=== PATIENT | male | born 1955 | race Caucasian/White ===

== ENCOUNTER 2016-08-05 13:10 | Emergency (ER) | payer MEDICAID ==
[2016-08-05 13:10] VITALS: BMI 35.5
[2016-08-05 13:38] VITALS: TEMP 98
[2016-08-05] MEDS ORDERED: Sodium Chloride 0.9% 1,000 ML IV STA (13:52)
--- NOTE | 2016-08-05 14:01 | ED PDOC ---
Arrival/HPI - General Chief Complaint: Trauma Time Seen by Provider: 08/05/16 13:43 Historian: Patient - History of Present Illness Narrative History of Present Illness (Text): 08/05/16 13:46 Storm Lomax is a 61 year old male whose past medical history includes Diabetes , Hypertension, Hyperlipidemia, and TIA who presents to the emergency department for left sided rib pain after a mechanical fall last night. Patient reports as he was going down the stairs he missed a step, subsequently falling, and hitting his side on a step. Pain is worsened with coughing and deep breaths. Patient also states he is thirsty and that his sugar is higher than usual, despite taking his medication. Patient otherwise denies any fever, chills , shortness of breath, nausea, vomiting, diarrhea, urinary symptoms, back pain, neck pain, headache, dizziness, or any other complaints. PMD: Colin Rose MD Time/Duration: 24 hours Symptom Onset: Sudden Symptom Course: Unchanged Activities at Onset: Light Context: Walking, Home Past Medical History - Provider Review Nursing Documentation Reviewed: Yes - Infectious Disease Hx of Infectious Diseases: None - Cardiac Hx Cardiac Disorders: Yes Hx Hypertension: Yes - Pulmonary Hx Respiratory Disorders: Yes Other/Comment: LIGHT SMOKER <12/WK - Neurological Hx Neurological Disorder: Yes Hx Transient Ischemic Attacks (TIA): Yes - HEENT Hx HEENT Disorder: Yes (WEARS GLASSES) - Renal Hx Kidney Stones: Yes - Endocrine/Metabolic Hx Endocrine Disorders: Yes Hx Diabetes Mellitus Type 2: Yes - Musculoskeletal/Rheumatological Hx Musculoskeletal Disorders: Yes Hx Falls: Yes Hx Herniated Disk: Yes (lumbar spine) Hx Osteoarthritis: Yes - Gastrointestinal Hx Gastrointestinal Disorders: No - Genitourinary/Gynecological Hx Genitourinary Disorders: No - Psychiatric Hx Psychophysiologic Disorder: No Hx Substance Use: No - Surgical History Hx Appendectomy: Yes Hx [place] [facility] [place] Other/Comment: Vasectomy - Suicidal Assessment Feels Threatened In Home Enviroment: No Family/Social History - Physician Review Nursing Documentation Reviewed: Yes Family/Social History: No Known Family HX Smoking Status: Light Smoker < 10 Cigarettes Daily Hx Alcohol Use: Yes Frequency of alcohol use: Daily Hx Substance Use: No Hx Substance Use Treatment: No Allergies/Home Meds Allergies/Adverse Reactions: Allergies No Known Allergies Allergy (Unverified 04/14/15 10:29) Home Medications: Home Meds Medication Instructions Recorded Confirmed oxyCODONE/Acetaminophen [Percocet 1 tab PO PRN PRN 08/05/16 08/05/16 5/325 mg Tab] Review of Systems - Physician Review All systems were reviewed & negative as marked: Yes - Review of Systems Constitutional: Normal. absent: Fevers Eyes: Normal ENT: Normal Respiratory: Normal. absent: SOB, Cough Cardiovascular: Chest Pain (Right Rib Pain) Gastrointestinal: Normal. absent: Abdominal Pain, Diarrhea, Nausea, Vomiting Genitourinary Male: Normal. absent: Dysuria, Frequency, Hematuria, Urinary Output Changes Musculoskeletal: Normal. absent: Back Pain, Neck Pain Skin: Normal Neurological: Normal. absent: Headache, Dizziness Endocrine: Normal Hemo/Lymphatic: Normal Psychiatric: Normal Physical Exam Vital Signs Reviewed: Yes Vital Signs Temp Pulse Resp BP Pulse Ox 08/05/16 13:31 98 F 108 H 18 151/74 H 96 Temperature: Afebrile Blood Pressure: Hypertensive Pulse: Tachycardic Respiratory Rate: Normal Appearance: Positive for: Well-Appearing, Non-Toxic, Comfortable Pain Distress: None Mental Status: Positive for: Alert and Oriented X 3 - Systems Exam Head: Present: Atraumatic, Normocephalic Pupils: Present: PERRL Extroacular Muscles: Present: EOMI Conjunctiva: Present: Normal Mouth: Present: Moist Mucous Membranes Neck: Present: Normal Range of Motion Respiratory/Chest: Present: Clear to Auscultation, Good Air Exchange, Tender to Palpation (Mild tenderness to the left lateral ribs when laying down; no crepus no step off ). No: Respiratory Distress, Accessory Muscle Use Cardiovascular: Present: Regular Rate and Rhythm, Normal S1, S2. No: Murmurs Abdomen: Present: Normal Bowel Sounds. No: Tenderness, Distention, Peritoneal Signs Back: Present: Normal Inspection. No: CVA Tenderness Neurological: Present: GCS=15, CN II-XII Intact, Speech Normal Skin: Present: Warm, Dry, Normal Color. No: Rashes Psychiatric: Present: Alert, Oriented x 3, Normal Insight, Normal Concentration Medical Decision Making ED Course and Treatment: 08/05/16 13:46 Impression: 61 year old male complaining of left rib pain and high sugar Differential Diagnosis include but are not limited to: Hyperglycemia; Left Rib Pain r/o fracture Plan: -- Left Ribs X-Ray -- IV Fluids -- Toradol -- Labs -- Reassess and disposition Prior Visits: Notes and results from previous visits were reviewed. Patient was last seen in the Emergency department on 04/18/16 for chest pain. Progress Notes: Patient was hydrated with 1 liter NS to clear lactic acid and dehydration. BUN/ Cr normal. Patient is making urine. Patient is not lightheaded or dizzy. Patient states has improved a lot. He will receive an incentive spirometer and educated on use. He will make sure to follow up with primary care doctor this week. - Lab Interpretations Lab Results: 08/05/16 15:30 08/05/16 15:30 Lab Results 08/05/16 15:30: WBC 9.1 D, RBC 4.32, Hgb 15.0, Hct 41.8 L, MCV 96.8, MCH 34.7, MCHC 35.9, RDW 14.0, Plt Count 175, MPV 11.2 H, Gran % 80.8 H, Lymph % (Auto) 12.0 L, Cass % (Auto) 6.9 H, Eos % (Auto) 0.1 L, Baso % (Auto) 0.2, Gran # 7.37 H, Lymph # 1.1 L, Cass # 0.6, Eos # 0.0, Baso # 0.02, pO2 162 H, VBG pH 7.48 H, VBG pCO2 39.0 L, VBG HCO3 29.0 H, VBG Total CO2 30.2 H, VBG O2 Sat (Calc) 99.4 H , VBG Base Excess 5.2 H, VBG Potassium 3.8, Glucose 187 H, Lactate 2.8 H, FiO2 21.0, Sodium 138.0, Potassium 3.9, Chloride 104.0, Carbon Dioxide 28, Anion Gap 16, BUN 10, Creatinine 0.5, Est GFR ( Amer) > 60, Est GFR (Non-Af Amer) > 60, Random Glucose 176 H, Calcium 9.5, Venous Blood Potassium 3.8 I have reviewed the lab results: Yes Interpretation: No clinic. lab abnormalty - RAD Interpretation Radiology Orders: 08/05/16 13:50 RIBS LEFT & PA CHEST [RAD] Stat Refund Clerk: ED Physician - Medication Orders Current Medication Orders: Discontinued Medications Sodium Chloride (Sodium Chloride 0.9%) 1,000 mls @ 999 mls/hr IV .Q1H1M STA Stop: 08/05/16 14:52 Last Admin: 08/05/16 15:30 Dose: 999 MLS/HR eMAR Start Stop Document 08/05/16 15:30 SZA (Rec: 08/05/16 15:36 SZA [id number]) Intravenous Solution Start Date 08/05/16 Start Time 15:30 End Date 08/05/16 End time 16:30 Total Infusion Time 60 Ketorolac Tromethamine (Toradol) 30 mg IVP STAT STA Stop: 08/05/16 13:52 Last Admin: 08/05/16 15:36 Dose: 30 MG IVP Administration Document 08/05/16 15:36 SZA (Rec: 08/05/16 15:36 SZA [id number]) Charges for Administration # of IVP Administrations 1 - Scribe Statement The provider has reviewed the documentation as recorded by the Eagle Bateman Provider Attestation: All medical record entries made by the Eagle were at my direction and personally dictated by me. I have reviewed the chart and agree that the record accurately reflects my personal performance of the history, physical exam, medical decision making, and the department course for this patient. I have also personally directed, reviewed, and agree with the discharge instructions and disposition. Disposition/Present on Arrival - Present on Arrival Any Indicators Present on Arrival: No History of DVT/PE: No History of Uncontrolled Diabetes: No Urinary Catheter: No History of Decub. Ulcer: No History Surgical Site Infection Following: None - Disposition Have Diagnosis and Disposition been Completed?: Yes Diagnosis: Rib contusion Disposition: HOME/ ROUTINE Disposition Time: 17:31 Patient Plan: Discharge Patient Problems: Current Active Problems Problem Status Diagnosed Rib contusion Acute Condition: IMPROVED Discharge Instructions (ExitCare): Dehydration (ED), Rib Contusion (ED) Additional Instructions: Mr Lomax, thank you for letting us take care of you today. Your provider was Dr. Metcalf. You were treated for Rib Contusion. The emergency medical care you received today was directed at your acute symptoms. If you were prescribed any medication, please fill it and take as directed. It may take several days for your symptoms to resolve. Return to the Emergency Department if your symptoms worsen, do not improve, or if you have any other problems. Please contact your doctor or call one of the physicians/clinics you have been referred to that are listed on the Patient Visit Information form that is included in your discharge packet. Bring any paperwork you were given at discharge with you along with any medications you are taking to your follow up visit. Our treatment cannot replace ongoing medical care by a primary care provider (PCP) outside of the emergency department. Thank you for allowing the [facility] team to be part of your care today. If you had an X-Ray or CT scan: A Radiologist will review the ED reading if any change in treatment is needed we will contact you. If you had a blood, urine, or wound culture: It will take several days for the results, if any change in treatment is needed we will contact you. If you had an STI test: It will take 48 hours for the results. Please call after 1 week if you have not heard back. Referrals: Colin Rose MD [Primary Care Provider] - Follow up with primary Forms: WORK NOTE
[2016-08-05 15:37] LABS: ADD MANUAL DIFF? NO
[2016-08-05 15:42] LABS: VENOUS BLOOD GAS BASE EXCESS 5.2 mmol/L (0.0-2.0); VENOUS BLOOD PH 7.48 (7.32-7.43)
[2016-08-05 15:50] LABS: BLOOD UREA NITROGEN 10 mg/dL (7-21); CALCIUM 9.5 mg/dL (8.4-10.5); CARBON DIOXIDE 28 mmol/L (21-33); CHLORIDE 99 mmol/L (98-107); GFR AFRICAN-AMERICAN > 60; GLUCOSE,RANDOM 176 mg/dL (70-110); POTASSIUM 3.9 mmol/L (3.6-5.0); SODIUM 139 mmol/L (132-148)
[2016-08-05 15:55] LABS: BASO # 0.02 K/mm3 (0.0-2.0); BASO % 0.2 % (0.0-3.0); EOS % 0.1 % (1.5-5.0); GRAN # 7.37 (1.4-6.5); GRAN % 80.8 % (50.0-68.0); HEMATOCRIT 41.8 % (42.0-52.0); LYMPH # 1.1 (1.2-3.4); MEAN CELL VOLUME 96.8 fL (80.0-105.0); MEAN CORPUSCULAR HEMOGLOBIN 34.7 pg (25.0-35.0); MEAN CORPUSCULAR HGB CONC 35.9 g/dl (31.0-37.0); MEAN PLATELET VOLUME 11.2 fl (7.0-11.0); MONO # 0.6 (0.1-0.6); MONO % 6.9 % (1.0-6.0); PLATELET COUNT 175 10^3/uL (120.0-450.0); WHITE BLOOD COUNT 9.1 10^3/ul (4.5-11.0)
[2016-08-05 18:55] VITALS: BP 136/63; PULSE 85; RESP 16; O2SAT 95
--- NOTE | 2016-08-06 13:13 | RAD ---
PROCEDURE: Chest and left rib series dated 08/05/2016. New HISTORY: left rib pain s/p fall r/o fracture COMPARISON: Comparison made with chest radiograph 04/18/2016. TECHNIQUE: Frontal view of the chest and 4 additional views of the left ribs performed. Study is slightly limited by motion artifact. FINDINGS: Heart size is within range of normal. Mild bibasilar atelectasis. No evidence of effusion or pneumothorax. The visualized left ribs appear grossly intact. No definitive evidence of acute displaced fracture. If symptoms persist or occult fracture suspected clinically recommend followup CT scan of the chest. IMPRESSION: No definitive evidence of acute displaced left-sided rib fracture. If symptoms persist or occult fracture suspected clinically recommend followup CT scan of the chest.
== END 2016-08-05 17:41 | disposition home or self-care (01) ==
LOC: ED 13:10
DX: S20.212A Contusion of left front wall of thorax, initial encounter (principal); W10.9XXA Fall (on) (from) unspecified stairs and steps, initial encounter; Z91.81 History of falling; Y93.01 Activity, walking, marching and hiking; Y92.009 Unspecified place in unspecified non-institutional (private) residence as the place of occurrence of the external cause; E11.9 Type 2 diabetes mellitus without complications; M19.90 Unspecified osteoarthritis, unspecified site; I10 Essential (primary) hypertension; F17.210 Nicotine dependence, cigarettes, uncomplicated; Z86.73 Personal history of transient ischemic attack (TIA), and cerebral infarction without residual deficits
CPT/HCPCS: 71101; 80048; 82803; 82948; 85025; 96361; 96374; 99285; J1885; J7040

== ENCOUNTER 2016-09-25 21:25 | Observation (INO) | payer MEDICARE, MEDICAID ==
[2016-09-25 22:25] VITALS: BMI 33.7
--- NOTE | 2016-09-25 22:28 | ED PDOC ---
Arrival/HPI - General Chief Complaint: Weakness/Neurological Deficit Time Seen by Provider: 09/25/16 22:01 Historian: Patient - History of Present Illness Narrative History of Present Illness (Text): 09/25/16 22:25 Storm Lomax is a 61 year old male, with a history of hypertension, diabetes, hyperlipidemia, and TIA (May 2015), presents to the emergency department complaining of upper extremity tremors. Admits to drinking alcohol throughout the day. States he has been compliant with his medications. Denies any fever, headache, dizziness, chest pain, shortness of breath, abdominal pain, nausea, vomiting, diarrhea, urinary symptoms, or any other complaints at this time. PMD: Time/Duration: 1-3 hours Symptom Onset: Gradual Severity Level: Mild Activities at Onset: Light Context: Home Past Medical History - Provider Review Nursing Documentation Reviewed: Yes - Infectious Disease Hx of Infectious Diseases: None - Cardiac Hx Cardiac Disorders: Yes Hx Hypertension: Yes - Pulmonary Hx Respiratory Disorders: Yes Other/Comment: LIGHT SMOKER <12/WK - Neurological Hx Neurological Disorder: Yes Hx Transient Ischemic Attacks (TIA): Yes - HEENT Hx HEENT Disorder: Yes (WEARS GLASSES) - Renal Hx Kidney Stones: Yes - Endocrine/Metabolic Hx Endocrine Disorders: Yes Hx Diabetes Mellitus Type 2: Yes - Musculoskeletal/Rheumatological Hx Musculoskeletal Disorders: Yes Hx Falls: Yes Hx Herniated Disk: Yes (lumbar spine) Hx Osteoarthritis: Yes - Gastrointestinal Hx Gastrointestinal Disorders: No - Genitourinary/Gynecological Hx Genitourinary Disorders: No - Psychiatric Hx Psychophysiologic Disorder: No Hx Substance Use: No - Surgical History Hx Appendectomy: Yes Hx Cardiac Catheterization: Yes [place]4 months ago [place] [facility] [place] [facility] [place] Other/Comment: Vasectomy - Suicidal Assessment Feels Threatened In Home Enviroment: No Family/Social History - Physician Review Nursing Documentation Reviewed: Yes Family/Social History: No Known Family HX Smoking Status: Light Smoker < 10 Cigarettes Daily Hx Alcohol Use: Yes Hx Substance Use: No Hx Substance Use Treatment: No Allergies/Home Meds Allergies/Adverse Reactions: Allergies No Known Allergies Allergy (Verified 09/25/16 22:25) Home Medications: Home Meds Medication Instructions Recorded Confirmed oxyCODONE/Acetaminophen [Percocet 1 tab PO PRN PRN 08/05/16 08/05/16 5/325 mg Tab] Review of Systems - Physician Review All systems were reviewed & negative as marked: Yes - Review of Systems Constitutional: Normal. absent: Fatigue, Fevers Respiratory: Normal. absent: SOB, Cough, Sputum Cardiovascular: Normal. absent: Chest Pain, Palpitations Gastrointestinal: Normal. absent: Abdominal Pain, Diarrhea, Nausea, Vomiting Musculoskeletal: Other (resting upper extremity tremors ) Neurological: absent: Headache, Dizziness Psychiatric: Normal Physical Exam Vital Signs Reviewed: Yes Vital Signs Temp BP 09/25/16 21:43 98.4 F 162/74 H Temperature: Afebrile Blood Pressure: Hypertensive Pulse: Regular Respiratory Rate: Normal Appearance: Positive for: Well-Appearing, Non-Toxic, Comfortable Pain Distress: None Mental Status: Positive for: Alert and Oriented X 3 Finger Stick Blood Glucose: 291 - Systems Exam Head: Present: Atraumatic, Normocephalic Pupils: Present: PERRL Mouth: Present: Moist Mucous Membranes Respiratory/Chest: Present: Clear to Auscultation, Good Air Exchange. No: Respiratory Distress, Accessory Muscle Use Cardiovascular: Present: Regular Rate and Rhythm, Normal S1, S2. No: Murmurs Upper Extremity: Present: Normal Inspection. No: Cyanosis, Edema Lower Extremity: Present: Normal Inspection. No: Edema Neurological: Present: GCS=15, CN II-XII Intact, Speech Normal, Motor Func Grossly Intact, Normal Sensory Function, Other (resting tremors. No weakness ) Skin: Present: Warm, Dry, Normal Color. No: Rashes Psychiatric: Present: Alert, Oriented x 3, Normal Insight, Normal Concentration Medical Decision Making ED Course and Treatment: 09/25/16 22:32 Impression: A 61 year old male who presents to the emergency department complaining of resting tremors. Admits to drinking alcohol today. Differential Diagnosis included but are not limited to: Alcohol withdrawal. Plan: -- CT Head -- EKG -- Labs, cardiac enzymes -- Drug Screen -- Ativan -- Chest X-ray -- Reassess and disposition Progress Notes: 09/26/16 00:29 EKG interpreted by me: NSR @ 90 bpm. No acute changes Chest X-ray interpreted by me: No acute processes. 09/26/16 00:30 CT Head results reviewed, read by Jorge Sullivan MD FINDINGS: Brain: There is mild prominence of ventricles and sulci, compatible with mild atrophy. There is no evidence of intracranial hemorrhage. No evidence of acute territorial infarction. No significant white matter disease. No edema. Punctate calcification in the right frontal periventricular region Ventricles: See above. Bones/joints: Unremarkable. No acute fracture. Soft tissues: Unremarkable. Sinuses: Unremarkable as visualized. No acute sinusitis. Mastoid air cells: Unremarkable as visualized. No mastoid effusion. IMPRESSION: 1. No evidence for acute intracranial abnormality or displaced calvarial fracture. 2. Additional incidental and/or chronic findings as described. 09/26/16 00:49 Case discussed with who is aware and agrees with the plan observe patient at telemetry for alcohol withdrawal. Accepts patient under hospitalist service. Patient evaluated by medical records analyst bedside. - Lab Interpretations Lab Results: 09/25/16 22:51 09/25/16 22:51 Lab Results 09/25/16 22:51: Alcohol, Quantitative 264 H 09/25/16 22:51: WBC 6.0 D, RBC 4.63, Hgb 16.3, Hct 44.7, MCV 96.5, MCH 35.2 H, MCHC 36.5, RDW 13.5, Plt Count 182, MPV 10.6 09/25/16 22:51: Sodium 142, Potassium 3.9, Chloride 97 L, Carbon Dioxide 25, Anion Gap 24 H, BUN 11, Creatinine 0.5, Est GFR ( Amer) > 60, Est GFR ( Non-Af Amer) > 60, Random Glucose 286 H, Calcium 9.4, Total Bilirubin 0.7, AST 76 H, ALT 130 H, Alkaline Phosphatase 95, Lactate Dehydrogenase 457, Total Creatine Kinase 75, Troponin I < 0.01, Total Protein 8.0, Albumin 4.6, Globulin 3.4, Albumin/Globulin Ratio 1.4 I have reviewed the lab results: Yes - RAD Interpretation Radiology Orders: 09/25/16 22:33 HEAD W/O CONTRAST [CT] Stat 09/25/16 22:34 CHEST PORTABLE [RAD] Stat Inventory Control/Shipping Receiving: Radiologist - EKG Interpretation Interpreted by ED Physician: Yes Type: 12 lead EKG - Medication Orders Current Medication Orders: Discontinued Medications Lorazepam (Ativan) 1 mg PO ONCE STA Stop: 09/25/16 22:37 Last Admin: 09/25/16 22:54 Dose: 1 mg - Scribe Statement The provider has reviewed the documentation as recorded by the Scriblarisa Rizvi Provider Attestation: Provider Scribe Attestation: All medical record entries made by the Eagle were at my direction and personally dictated by me. I have reviewed the chart and agree that the record accurately reflects my personal performance of the history, physical exam, medical decision making, and the department course for this patient. I have also personally directed, reviewed, and agree with the discharge instructions and disposition. Disposition/Present on Arrival - Present on Arrival Any Indicators Present on Arrival: No History of DVT/PE: No History of Uncontrolled Diabetes: No Urinary Catheter: No History of Decub. Ulcer: No History Surgical Site Infection Following: None - Disposition Have Diagnosis and Disposition been Completed?: Yes Diagnosis: Alcohol withdrawal syndrome Disposition: HOSPITALIZED Disposition Time: 00:46 Patient Plan: Observation Patient Problems: Current Active Problems Problem Status Onset Alcohol withdrawal syndrome Acute Condition: STABLE Referrals: Colin Rose MD [Primary Care Provider] - Follow up with primary
[2016-09-25 23:03] LABS: HEMATOCRIT 44.7 % (42.0-52.0); MEAN CELL VOLUME 96.5 fL (80.0-105.0); MEAN CORPUSCULAR HEMOGLOBIN 35.2 pg (25.0-35.0); MEAN CORPUSCULAR HGB CONC 36.5 g/dl (31.0-37.0); MEAN PLATELET VOLUME 10.6 fl (7.0-11.0); RED CELL DISTRIBUTION WIDTH 13.5 % (11.5-14.5)
[2016-09-25 23:10] LABS: ALB/GLOB RATIO 1.4 (1.1-1.8); ALKALINE PHOSPHATASE 95 U/L (38-133); ALT/SGPT 130 U/L (7-56); AST/SGOT 76 U/L (15-59); BILIRUBIN,TOTAL 0.7 mg/dL (0.2-1.3); BLOOD UREA NITROGEN 11 mg/dL (7-21); CALCIUM 9.4 mg/dL (8.4-10.5); CARBON DIOXIDE 25 mmol/L (21-33); CHLORIDE 97 mmol/L (98-107); GFR AFRICAN-AMERICAN > 60; GLUCOSE,RANDOM 286 mg/dL (70-110); POTASSIUM 3.9 mmol/L (3.6-5.0); SODIUM 142 mmol/L (132-148)
[2016-09-25 23:22] LABS: TROPONIN I < 0.01 ng/mL
--- NOTE | 2016-09-25 23:46 | CT ---
EXAM: CT Head Without Intravenous Contrast CLINICAL HISTORY: 61 years old, male; Signs and symptoms; Other: Tremors TECHNIQUE: Axial computed tomography images of the head/brain without intravenous contrast. This CT exam was performed using one or more of the following dose reduction techniques: automated exposure control, adjustment of the mA and/or kV according to patient size, and/or use of iterative reconstruction technique. COMPARISON: CT - HEAD W/O CONTRAST 04/18/2016 11:53:50 PM FINDINGS: Brain: There is mild prominence of ventricles and sulci, compatible with mild atrophy. There is no evidence of intracranial hemorrhage. No evidence of acute territorial infarction. No significant white matter disease. No edema. Punctate calcification in the right frontal periventricular region Ventricles: See above. Bones/joints: Unremarkable. No acute fracture. Soft tissues: Unremarkable. Sinuses: Unremarkable as visualized. No acute sinusitis. Mastoid air cells: Unremarkable as visualized. No mastoid effusion. IMPRESSION: 1. No evidence for acute intracranial abnormality or displaced calvarial fracture. 2. Additional incidental and/or chronic findings as described.
--- NOTE | 2016-09-26 01:10 | CP.PCM.HP ---
<Juan AlbertoJarred young - Last Filed: 09/26/16 01:05> History of Present Illness - History of Present Illness History of Present Illness: This patient is a 61yo [place]ian M who is coming into the hospital for anxiety/ tremors after he has been binge drinking 1pint of Vodka per day for the past 10 days. The patient states that he has been incredibly stressed due to the loss of his job 10 days ago, and has begun to drink every day since then. He states he is depressed/anxious because of this. Denies hearing voices/seeing hallucinations, denies thoughts of suicide, no plans to hurt self or others, thought process is clear and goal oriented and patient has good insight into his problem. He has attended AA for many years already and knows he has a problem with drinking. EtOH in ER was 270; patient denies FERNÁNDEZ, CP, SOB, abdominal pain, N/V/D, fevers/chills, dysuria/freq/urg, or lower extremity pain/ swelling. Patient denies admission for EtOH withdrawal, or ever needing to be admitted for drinking before. PMhx: DM on insulin uncontrolled last A1C 9.1, HTN, HLD Meds: Lantus 45 units morning and night, and sliding scale before meals, amlodipine, ramapril, lipitor Social: daily drinker, however drinking much more recently since loss of job 10 days ago; Denies current illicit drugs; former smoker 1pack per day for 30 years. Surgeries: Appendix removal, Vasectomy, Right Meniscal repair, partial nephrectomy Allergies: Denies The patients EtOH level was 270 in the ED; patient is tachycardic and hypertensive and slightly shaky/anxious. No AV hallucinations. Given 1mg PO ativan which helped symptoms. Present on Admission - Present on Admission Any Indicators Present on Admission: No History of DVT/PE: No History of Uncontrolled Diabetes: Yes Urinary Catheter: No Decubitus Ulcer Present: No Review of Systems - Review of Systems All systems: reviewed and no additional remarkable complaints except Past Patient History - Infectious Disease Hx of Infectious Diseases: None - Past Social History Smoking Status: Light Smoker < 10 Cigarettes Daily - CARDIAC Hx Cardiac Disorders: Yes Hx Hypertension: Yes - PULMONARY Hx Respiratory Disorders: Yes Other/Comment: LIGHT SMOKER <12/WK - NEUROLOGICAL Hx Neurological Disorder: Yes Hx Transient Ischemic Attacks (TIA): Yes - HEENT Hx HEENT Problems: Yes (WEARS GLASSES) - RENAL Hx Kidney Stones: Yes - ENDOCRINE/METABOLIC Hx Endocrine Disorders: Yes Hx Diabetes Mellitus Type 2: Yes - MUSCULOSKELETAL/RHEUMATOLOGICAL Hx Musculoskeletal Disorders: Yes Hx Falls: Yes Hx Herniated Disk: Yes (lumbar spine) Hx Osteoarthritis: Yes - GASTROINTESTINAL Hx Gastrointestinal Disorders: No - GENITOURINARY/GYNECOLOGICAL Hx Genitourinary Disorders: No - PSYCHIATRIC Hx Psychophysiologic Disorder: No Hx Substance Use: No - SURGICAL HISTORY Hx Appendectomy: Yes Hx Cardiac Catheterization: Yes (4 months ago in [facility]) Other/Comment: Vasectomy Meds Allergies/Adverse Reactions: Allergies Allergy/AdvReac Type Severity Reaction Status Date / Time No Known Allergies Allergy Verified 09/26/16 14:18 Physical Exam - Constitutional Appears: Non-toxic Additional comments: flushed face, anxious, appropriate affect - Head Exam Head Exam: ATRAUMATIC - Eye Exam Eye Exam: EOMI - ENT Exam ENT Exam: Mucous Membranes Moist - Respiratory Exam Respiratory Exam: Clear to Auscultation Bilateral, NORMAL BREATHING PATTERN. absent: Rales, Rhonchi, Wheezes - Cardiovascular Exam Cardiovascular Exam: Tachycardia, REGULAR RHYTHM, +S1, +S2 - GI/Abdominal Exam GI & Abdominal Exam: Normal Bowel Sounds, Soft. absent: Tenderness - Extremities Exam Extremities exam: Positive for: full ROM. Negative for: calf tenderness - Back Exam Back exam: NORMAL INSPECTION. absent: CVA tenderness (L), CVA tenderness (R) - Neurological Exam Neurological exam: Alert, Oriented x3 - Skin Skin Exam: Dry Results - Vital Signs Recent Vital Signs: Last Vital Signs Temp 98.4 F 09/25/16 21:43 Pulse 99 H 09/26/16 01:01 Resp 18 09/26/16 01:01 BP 129/82 09/26/16 01:01 Pulse Ox 95 09/26/16 01:01 - Labs Result Diagrams: 09/25/16 22:51 09/25/16 22:51 Labs: Laboratory Results - last 24 hr 09/25/16 09/25/16 09/25/16 22:51 22:51 22:51 WBC 6.0 D RBC 4.63 Hgb 16.3 Hct 44.7 MCV 96.5 MCH 35.2 H MCHC 36.5 RDW 13.5 Plt Count 182 MPV 10.6 Sodium 142 Potassium 3.9 Chloride 97 L Carbon Dioxide 25 Anion Gap 24 H BUN 11 Creatinine 0.5 Est GFR ( Amer) > 60 Est GFR (Non-Af Amer) > 60 Random Glucose 286 H Calcium 9.4 Total Bilirubin 0.7 AST 76 H ALT 130 H Alkaline Phosphatase 95 Lactate Dehydrogenase 457 Total Creatine Kinase 75 Troponin I < 0.01 Total Protein 8.0 Albumin 4.6 Globulin 3.4 Albumin/Globulin Ratio 1.4 Alcohol, Quantitative 264 H Assessment & Plan - Assessment and Plan (Free Text) Assessment: Pt is a 61yo M admitted for EtOH Withdrawal EtOH Withdrawal -Tachycardic and HTN in the ED; given 1mg PO ativan which responded well to -CIWA protocol -IV Thiamine as per Dr. Crawley, Folate, Multivitamin daily -Ativan Tricia 1mg Q6H and PRN Q2H 1mg -wishes to stop drinking and continue with AA meetings Depression -No SI/HI; good insight into problem with inciting event of losing job -Psych Consult; Dr. Nixon; appreciate recs -patient states he wants to talk to someone -never been depressed before DM -Normally takes Lantus 45 units BID, and 35 units 75/25 Humalog before meals -Giving Lantus 20 units BID, and 20 units 75/25 with sliding scale HLD -patient gets injectable Repatha every 2 weeks Proph Lovenox and Pepcid Heart healthy diet Decision To Admit - Pt Status Changed To: Hospital Disposition Of: Observation - . Bed Request Type: Med/Surg Admitting Physician: Derick Crawley <Derick Crawley - Last Filed: 10/09/16 19:27> Results - Vital Signs Recent Vital Signs: Last Vital Signs Temp 98.4 F 09/27/16 06:00 Pulse 96 H 09/27/16 10:00 Resp 18 09/27/16 06:00 BP 142/80 09/27/16 10:29 Pulse Ox 96 09/27/16 06:00 - Labs Result Diagrams: 09/27/16 07:00 09/27/16 07:00 Attending/Attestation - Attestation I have personally seen and examined this patient.: Yes I have fully participated in the care of the patient.: Yes I have reviewed all pertinent clinical information: Yes
[2016-09-26] MEDS ORDERED: Thiamine 100 mg/ml Inj IV STA (01:35)
[2016-09-26] MEDS ORDERED: Sodium Chloride 0.45% 1,000 ML IV ONE (01:37)
[2016-09-26 06:43] LABS: HEMATOCRIT 43.8 % (42.0-52.0); MEAN CELL VOLUME 96.1 fL (80.0-105.0); MEAN CORPUSCULAR HEMOGLOBIN 34.9 pg (25.0-35.0); MEAN CORPUSCULAR HGB CONC 36.3 g/dl (31.0-37.0); MEAN PLATELET VOLUME 10.6 fl (7.0-11.0); RED CELL DISTRIBUTION WIDTH 13.5 % (11.5-14.5); WHITE BLOOD COUNT 5.6 10^3/ul (4.5-11.0)
[2016-09-26 06:53] LABS: ALB/GLOB RATIO 1.3 (1.1-1.8); ALKALINE PHOSPHATASE 98 U/L (38-133); ALT/SGPT 123 U/L (7-56); AST/SGOT 63 U/L (15-59); BILIRUBIN,TOTAL 0.9 mg/dL (0.2-1.3); BLOOD UREA NITROGEN 12 mg/dL (7-21); CALCIUM 9.7 mg/dL (8.4-10.5); CARBON DIOXIDE 25 mmol/L (21-33); CHLORIDE 98 mmol/L (98-107); GFR AFRICAN-AMERICAN > 60; MAGNESIUM 1.9 mg/dL (1.7-2.2); POTASSIUM 4.3 mmol/L (3.6-5.0); SODIUM 138 mmol/L (132-148); TOTAL PROTEIN 7.6 g/dL (5.8-8.3)
[2016-09-26 07:05] LABS: GLUCOSE,RANDOM 384 mg/dL (70-110)
[2016-09-26] MEDS ORDERED: Multivitamin (MVI) 10 ML, Thiamine 100 MG, Folic Acid 1 MG in Sodium Chloride 0.9% 1,00... IV ONE (07:13)
[2016-09-26] MEDS ORDERED: Insulin Detemir 100 units/ml Vial (Levemir) SC SCH (07:30)
--- NOTE | 2016-09-26 08:32 | RAD ---
HISTORY: tremors/medical clearance COMPARISON: 08/05/2016 FINDINGS: LUNGS: No active pulmonary disease. PLEURA: No significant pleural effusion identified, no pneumothorax apparent. CARDIOVASCULAR: Normal. OSSEOUS STRUCTURES: No significant abnormalities. VISUALIZED UPPER ABDOMEN: Normal. OTHER FINDINGS: None. IMPRESSION: No active disease.
[2016-09-26] MEDS: Insulin Detemir 100 units/ml Vial (Levemir) SC SCH ×2 (08:36→16:39)
[2016-09-26] MEDS: Insulin Lispro 1 UNITS/0.01 ML SC SCH ×4 (08:37→22:00)
[2016-09-26] MEDS: Insulin Lispro (humaLOG) MIX 75/25(10 ml) SC SCH ×4 (08:38→22:23)
[2016-09-26] MEDS: Enoxaparin 40 mg Syringe SC SCH (10:00)
--- NOTE | 2016-09-26 10:02 | CARD ---
APPROVED REPORT EKG Measurement Heart [id number] <Conclusion> Normal sinus rhythm NSSTW changes Mildly prolonged QTc. No change
[2016-09-26] MEDS: Multivitamin Vitamin B Complex (Nephro-Vite) Tab PO SCH (10:57)
[2016-09-26] MEDS ORDERED: Pneumococcal 23-Valent Vaccine IM ONE (15:48)
[2016-09-27 07:45] LABS: HEMATOCRIT 43.3 % (42.0-52.0); MEAN CELL VOLUME 96.4 fL (80.0-105.0); MEAN CORPUSCULAR HEMOGLOBIN 34.3 pg (25.0-35.0); MEAN CORPUSCULAR HGB CONC 35.6 g/dl (31.0-37.0); MEAN PLATELET VOLUME 10.8 fl (7.0-11.0); RED CELL DISTRIBUTION WIDTH 13.4 % (11.5-14.5)
[2016-09-27 08:29] LABS: ALB/GLOB RATIO 1.2 (1.1-1.8); ALKALINE PHOSPHATASE 80 U/L (38-133); ALT/SGPT 89 U/L (7-56); AST/SGOT 43 U/L (15-59); BILIRUBIN,TOTAL 1.3 mg/dL (0.2-1.3); BLOOD UREA NITROGEN 12 mg/dL (7-21); CALCIUM 8.8 mg/dL (8.4-10.5); CARBON DIOXIDE 27 mmol/L (21-33); CHLORIDE 101 mmol/L (98-107); GFR AFRICAN-AMERICAN > 60; GLUCOSE,RANDOM 208 mg/dL (70-110); POTASSIUM 3.5 mmol/L (3.6-5.0); SODIUM 137 mmol/L (132-148); TOTAL PROTEIN 7.2 g/dL (5.8-8.3)
[2016-09-27] MEDS: Insulin Lispro 1 UNITS/0.01 ML SC SCH ×2 (08:41→11:43)
[2016-09-27] MEDS: Insulin Detemir 100 units/ml Vial (Levemir) SC SCH (08:42)
[2016-09-27 09:04] VITALS: RESP 18; TEMP 98.4; O2SAT 96
[2016-09-27] MEDS ORDERED: Potassium Chloride 40 mEq/30 ml LIQ UD PO ONE (09:10)
[2016-09-27] MEDS: Enoxaparin 40 mg Syringe SC SCH (10:29)
[2016-09-27] MEDS: Multivitamin Vitamin B Complex (Nephro-Vite) Tab PO SCH (10:29)
[2016-09-27 10:32] VITALS: BP 142/80
[2016-09-27 10:39] VITALS: PULSE 96
--- NOTE | 2016-09-27 13:41 | CP.PCM.DIS ---
<Konstantin Campbell - Last Filed: 09/27/16 13:47> Provider - Provider Date of Admission: 09/26/16 00:47 Attending physician: Vi Comer MD Primary care physician: Colin Rose MD Consults: Psych- Dr. Nixon Time Spent in preparation of Discharge (in minutes): 45 Hospital Course - Lab Results Lab Results: Most Recent Lab Values WBC 6.0 10^3/ul (4.5-11.0) 09/27/16 07:00 RBC 4.49 10^6/uL (3.5-6.1) 09/27/16 07:00 Hgb 15.4 gm/dL (14.0-18.0) 09/27/16 07:00 Hct 43.3 % (42.0-52.0) 09/27/16 07:00 MCV 96.4 fL (80.0-105.0) 09/27/16 07:00 MCH 34.3 pg (25.0-35.0) 09/27/16 07:00 MCHC 35.6 g/dl (31.0-37.0) 09/27/16 07:00 RDW 13.4 % (11.5-14.5) 09/27/16 07:00 Plt Count 141 10^3/uL (120.0-450.0) 09/27/16 07:00 MPV 10.8 fl (7.0-11.0) 09/27/16 07:00 Sodium 137 mmol/L (132-148) 09/27/16 07:00 Potassium 3.5 mmol/L (3.6-5.0) L 09/27/16 07:00 Chloride 101 mmol/L (98-107) 09/27/16 07:00 Carbon Dioxide 27 mmol/L (21-33) 09/27/16 07:00 Anion Gap 13 (10-20) 09/27/16 07:00 BUN 12 mg/dL (7-21) 09/27/16 07:00 Creatinine 0.5 mg/dL (0.5-1.4) 09/27/16 07:00 Est GFR ( Amer) > 60 09/27/16 07:00 Est GFR (Non-Af Amer) > 60 09/27/16 07:00 POC Glucose (mg/dL) 294 mg/dL (65-110) H 09/26/16 21:09 Random Glucose 208 mg/dL (70-110) H 09/27/16 07:00 Calcium 8.8 mg/dL (8.4-10.5) 09/27/16 07:00 Magnesium 1.9 mg/dL (1.7-2.2) 09/27/16 07:00 Total Bilirubin 1.3 mg/dL (0.2-1.3) 09/27/16 07:00 AST 43 U/L (15-59) 09/27/16 07:00 ALT 89 U/L (7-56) H 09/27/16 07:00 Alkaline Phosphatase 80 U/L (38-133) 09/27/16 07:00 Lactate Dehydrogenase 457 U/L (333-699) 09/25/16 22:51 Total Creatine Kinase 75 U/L (35-230) 09/25/16 22:51 Troponin I < 0.01 ng/mL 09/25/16 22:51 Total Protein 7.2 g/dL (5.8-8.3) 09/27/16 07:00 Albumin 3.9 g/dL (3.0-4.8) 09/27/16 07:00 Globulin 3.3 gm/dL 09/27/16 07:00 Albumin/Globulin Ratio 1.2 (1.1-1.8) 09/27/16 07:00 Urine Opiates Screen Negative (NEGATIVE) 09/26/16 00:25 Urine Methadone Screen Negative (NEGATIVE) 09/26/16 00:25 Ur Barbiturates Screen Negative (NEGATIVE) 09/26/16 00:25 Ur Phencyclidine Scrn Negative (NEGATIVE) 09/26/16 00:25 Ur Amphetamines Screen Negative (NEGATIVE) 09/26/16 00:25 U Benzodiazepines Scrn Negative (NEGATIVE) 09/26/16 00:25 U Oth Cocaine Metabols Negative (NEGATIVE) 09/26/16 00:25 U Cannabinoids Screen Negative (NEGATIVE) 09/26/16 00:25 Alcohol, Quantitative 264 mg/dL (0-10) H 09/25/16 22:51 - Hospital Course Hospital Course: Attending: Dr. Comer Admit date: 09/26 DC date- 09/27 Consults 1. Psych- Dr. Nixon Procedures- none No complications stable for dc Discharge dx 1. Alcohol abuse 2. depression 3. htn 4. hld 5. dm HPI: see h/p Labs: see lab data section Hospital course Pt is a 61 year old M admitted for EtOH Withdrawal EtOH Withdrawal -Tachycardic and HTN in the ED; given 1mg PO ativan which responded well to -CIWA protocol -IV Thiamine given, Folate, Multivitamin daily -Ativan Tricia 1mg Q6H and PRN Q2H 1mg -wishes to stop drinking and continue with AA meetings -will give ativan taper for 2 days Depression -No SI/HI; good insight into problem with inciting event of losing job -Psych Consult; Dr. Nixon; appreciate recs -patient states he wants to talk to someone -never been depressed before DM -Normally takes Lantus 45 units BID, and 35 units 75/25 Humalog before meals -Giving Lantus 25 units BID, and 20 units 75/25 with sliding scale HLD -patient gets injectable Repatha every 2 weeks Proph Lovenox and Pepcid Heart healthy diet Pt had uneventful hospital course and felt much better with no tremors and no complaints on day of discharge. DC instructions Pt cleared for dc. Please f/u with PMD. Please resume all home meds. Please f/u LFTs as outpatient. Take ativan for 2 days, total of 3 doses for taper. DC meds. 1. norvasc 10 mg po daily 2 ativan 1 bid for first day, ativan 1 daily, for 2nd day 3. thiamine 100 mg po daily 4. MVs daily 5. folic acid 1 mg po daily. 6. asa 81 mg po daily 7. tessalon 100 daily 8. gabapentin 300 bid 9. levemir 45 units bid 10. ramipril 20 mg po daily 11. spiriva 18 daily - Date & Time of H&P Date of H&P: 09/26/16 Time of H&P: 01:05 Discharge Exam - Head Exam Head Exam: ATRAUMATIC, NORMAL INSPECTION, NORMOCEPHALIC - Eye Exam Eye Exam: EOMI - ENT Exam ENT Exam: Mucous Membranes Moist - Neck Exam Neck exam: Full Rom, Normal Inspection - Respiratory Exam Respiratory Exam: NORMAL BREATHING PATTERN, UNREMARKABLE - Cardiovascular Exam Cardiovascular Exam: +S1, +S2 - GI/Abdominal Exam GI & Abdominal Exam: Normal Bowel Sounds - Extremities Exam Extremities exam: full ROM, normal inspection - Neurological Exam Neurological exam: Alert, Oriented x3 - Psychiatric Exam Psychiatric exam: Normal Affect, Normal Mood - Skin Skin Exam: Dry, Intact, Normal Color, Warm Discharge Plan - Discharge Medications Prescriptions: LORazepam [Ativan] 1 mg PO BID #2 tab LORazepam [Ativan] 1 mg PO DAILY #1 tab - Follow Up Plan Condition: STABLE Disposition: HOME/ ROUTINE Instructions: Alcohol Withdrawal (DC) Additional Instructions: Any reoccurrence of symptoms go to nearest emergency room Referrals: Colin Rose MD [Primary Care Provider] - 7 Days <Vi Comer - Last Filed: 09/28/16 09:50> Provider - Provider Date of Admission: 09/26/16 00:47 Attending physician: Vi Comer MD Primary care physician: Colni Rose MD Hospital Course - Lab Results Lab Results: Most Recent Lab Values WBC 6.0 10^3/ul (4.5-11.0) 09/27/16 07:00 RBC 4.49 10^6/uL (3.5-6.1) 09/27/16 07:00 Hgb 15.4 gm/dL (14.0-18.0) 09/27/16 07:00 Hct 43.3 % (42.0-52.0) 09/27/16 07:00 MCV 96.4 fL (80.0-105.0) 09/27/16 07:00 MCH 34.3 pg (25.0-35.0) 09/27/16 07:00 MCHC 35.6 g/dl (31.0-37.0) 09/27/16 07:00 RDW 13.4 % (11.5-14.5) 09/27/16 07:00 Plt Count 141 10^3/uL (120.0-450.0) 09/27/16 07:00 MPV 10.8 fl (7.0-11.0) 09/27/16 07:00 Sodium 137 mmol/L (132-148) 09/27/16 07:00 Potassium 3.5 mmol/L (3.6-5.0) L 09/27/16 07:00 Chloride 101 mmol/L (98-107) 09/27/16 07:00 Carbon Dioxide 27 mmol/L (21-33) 09/27/16 07:00 Anion Gap 13 (10-20) 09/27/16 07:00 BUN 12 mg/dL (7-21) 09/27/16 07:00 Creatinine 0.5 mg/dL (0.5-1.4) 09/27/16 07:00 Est GFR ( Amer) > 60 09/27/16 07:00 Est GFR (Non-Af Amer) > 60 09/27/16 07:00 POC Glucose (mg/dL) 294 mg/dL (65-110) H 09/26/16 21:09 Random Glucose 208 mg/dL (70-110) H 09/27/16 07:00 Calcium 8.8 mg/dL (8.4-10.5) 09/27/16 07:00 Magnesium 1.9 mg/dL (1.7-2.2) 09/27/16 07:00 Total Bilirubin 1.3 mg/dL (0.2-1.3) 09/27/16 07:00 AST 43 U/L (15-59) 09/27/16 07:00 ALT 89 U/L (7-56) H 09/27/16 07:00 Alkaline Phosphatase 80 U/L (38-133) 09/27/16 07:00 Lactate Dehydrogenase 457 U/L (333-699) 09/25/16 22:51 Total Creatine Kinase 75 U/L (35-230) 09/25/16 22:51 Troponin I < 0.01 ng/mL 09/25/16 22:51 Total Protein 7.2 g/dL (5.8-8.3) 09/27/16 07:00 Albumin 3.9 g/dL (3.0-4.8) 09/27/16 07:00 Globulin 3.3 gm/dL 09/27/16 07:00 Albumin/Globulin Ratio 1.2 (1.1-1.8) 09/27/16 07:00 Urine Opiates Screen Negative (NEGATIVE) 09/26/16 00:25 Urine Methadone Screen Negative (NEGATIVE) 09/26/16 00:25 Ur Barbiturates Screen Negative (NEGATIVE) 09/26/16 00:25 Ur Phencyclidine Scrn Negative (NEGATIVE) 09/26/16 00:25 Ur Amphetamines Screen Negative (NEGATIVE) 09/26/16 00:25 U Benzodiazepines Scrn Negative (NEGATIVE) 09/26/16 00:25 U Oth Cocaine Metabols Negative (NEGATIVE) 09/26/16 00:25 U Cannabinoids Screen Negative (NEGATIVE) 09/26/16 00:25 Alcohol, Quantitative 264 mg/dL (0-10) H 09/25/16 22:51 Attending/Attestation - Attestation I have personally seen and examined this patient.: Yes I have fully participated in the care of the patient.: Yes I have reviewed all pertinent clinical information, including history, physical exam and plan: Yes Notes (Text): 09/27/16 61 year old male with past medical history of alcohol abuse who was admitted for alcohol withdrawal. He was started on banana bag and ativan. His symptoms improved overnight. He was seen by psychiatrist. He was counselled on alcohol abstinence. He has high LFTs which he states is chronic; likely secondary to chronic ETOH abuse. Recommended close outpatient follow up. Vi Comer MD Hospitalist.
== END 2016-09-27 13:15 | disposition home or self-care (01) ==
LOC: ED 21:25 → ERH 09-26 00:47 → 3RNO 09-26 14:11
PROVIDERS: ADMIT Hospitalist; ATTEND Internal Medicine
DX: F10.239 Alcohol dependence with withdrawal, unspecified (principal); F32.9 Major depressive disorder, single episode, unspecified; E78.5 Hyperlipidemia, unspecified; E11.9 Type 2 diabetes mellitus without complications; Y90.8 Blood alcohol level of 240 mg/100 ml or more; Z87.891 Personal history of nicotine dependence; Z86.73 Personal history of transient ischemic attack (TIA), and cerebral infarction without residual deficits; Z79.4 Long term (current) use of insulin
CPT/HCPCS: 36415; 70450; 71010; 80053; 82550; 82948; 83615; 83735; 84311; 84484; 85027; 93005; 96365; 96366; 96372; 96375; 99285; G0378; G0480; J1650; J3411; J3480; J7030; J7040

== ENCOUNTER 2017-10-13 14:28 | Emergency (ER) | payer MEDICAID, MEDICARE ==
[2017-10-13 14:29] VITALS: BMI 33.7
[2017-10-13] MEDS ORDERED: TDAP Vaccine 0.5 mL Syr IM ONE (14:50)
--- NOTE | 2017-10-13 14:52 | ED PDOC ---
Arrival/HPI - General Time Seen by Provider: 10/13/17 14:43 Historian: Patient - History of Present Illness Narrative History of Present Illness (Text): 10/13/17 14:44 62 year old male, with past medical history of hypertension, high cholesterol, diabetes, TIA and COPD on CPAP, informs tetanus vaccine more than 10 years ago, presents to the Emergency department via EMS complaining of depression, anxiety and suicidal ideation prior to arrival. Patient informs he has been feeling sad for past few days prompting him to drink alcohol today. After having an argument with family, patient became agitated and cut his left forearm prior to arrival. Bleeding is currently controlled and full flexion and extension of left forearm noted with no numbness or tingling or weakness to the left upper extremity. Patient denies any other medical complaints including chest pain, shortness of breath, dizziness, auditory/visual/tactile hallucination or homicidal ideation. Patient denies any fever, chills, nausea, vomiting, diarrhea , abdominal pain or any other complaints. Patient presents to the Emergency department for medical evaluation. Time/Duration: Prior to Arrival Symptom Onset: Sudden Symptom Course: Improving Activities at Onset: Light Context: Home Past Medical History - Provider Review Nursing Documentation Reviewed: Yes - Infectious Disease Hx of Infectious Diseases: None - Cardiac Hx Cardiac Disorders: Yes Hx Hypertension: Yes - Pulmonary Hx Respiratory Disorders: Yes Hx Chronic Obstructive Pulmonary Disease (COPD): Yes Other/Comment: LIGHT SMOKER <12/WK - Neurological Hx Neurological Disorder: Yes Hx Transient Ischemic Attacks (TIA): Yes - HEENT Hx HEENT Disorder: Yes (WEARS GLASSES) - Renal Hx Renal Disorder: Yes (PARTIAL NEPHRECTOMY) Hx Kidney Stones: Yes - Endocrine/Metabolic Hx Endocrine Disorders: Yes Hx Diabetes Mellitus Type 2: Yes - Musculoskeletal/Rheumatological Hx Musculoskeletal Disorders: Yes Hx Falls: Yes Hx Herniated Disk: Yes (lumbar spine) Hx Osteoarthritis: Yes - Gastrointestinal Hx Gastrointestinal Disorders: No - Genitourinary/Gynecological Hx Genitourinary Disorders: No - Psychiatric Hx Psychophysiologic Disorder: Yes (ETOH ABUSE,BINGE DRINKS.) Hx Substance Use: No - Surgical History Hx Appendectomy: Yes Hx Cardiac Catheterization: Yes (4 months ago in [facility] [place]) Other/Comment: Vasectomy - Suicidal Assessment Feels Threatened In Home Enviroment: No Family/Social History - Physician Review Nursing Documentation Reviewed: Yes Family/Social History: No Known Family HX Smoking Status: Former Smoker Hx Alcohol Use: Yes (ETOH ABUSE.BINGE DRINKS) Hx Substance Use: No Hx Substance Use Treatment: No Allergies/Home Meds Allergies/Adverse Reactions: Allergies No Known Allergies Allergy (Verified 10/13/17 14:41) Home Medications: Home Meds Medication Instructions Recorded Confirmed Benzonatate 100 mg PO DAILY 09/26/16 09/26/16 Gabapentin [Neurontin] 300 mg PO BID 09/26/16 09/26/16 Tiotropium [Spiriva] 18 mcg IH DAILY 09/26/16 09/26/16 Review of Systems - Physician Review All systems were reviewed & negative as marked: Yes - Review of Systems Constitutional: absent: Fatigue, Fevers Respiratory: absent: SOB Cardiovascular: absent: Chest Pain Gastrointestinal: absent: Abdominal Pain, Diarrhea, Nausea, Vomiting Skin: Laceration. absent: Rash, Pruritis, Skin Lesions Neurological: absent: Headache, Dizziness Psychiatric: Anxiety, Depression, Suicidal Ideation Physical Exam Vital Signs Reviewed: Yes Vital Signs Temp Pulse Resp BP Pulse Ox 10/13/17 15:25 98.2 F 78 18 134/86 98 Temperature: Afebrile Blood Pressure: Normal Pulse: Regular Respiratory Rate: Normal Appearance: Positive for: Well-Appearing, Non-Toxic, Comfortable Pain Distress: Mild Mental Status: Positive for: Alert and Oriented X 3 - Systems Exam Head: Present: Atraumatic, Normocephalic Pupils: Present: PERRL Extroacular Muscles: Present: EOMI Conjunctiva: Present: Normal Neck: Present: Normal Range of Motion Respiratory/Chest: Present: Clear to Auscultation, Good Air Exchange. No: Respiratory Distress, Accessory Muscle Use Cardiovascular: Present: Regular Rate and Rhythm, Normal S1, S2. No: Murmurs Abdomen: No: Tenderness, Distention, Peritoneal Signs Back: Present: Normal Inspection Upper Extremity: Present: Normal ROM, NORMAL PULSES, Neurovascularly Intact, Capillary Refill < 2s, Other (LUE: 2cm superficial laceration to distal 1/3 flexor aspect of left forearm with no tendon/muscle involvement, FROM without limitation, sensation intact, motor 5/5, neurovascular intact. ). No: Cyanosis , Edema Lower Extremity: Present: Normal Inspection, Normal ROM, Neurovascularly Intact. No: Edema, Deformity Neurological: Present: GCS=15, CN II-XII Intact, Speech Normal, Motor Func Grossly Intact, Gait Normal, Memory Normal Skin: Present: Warm, Dry, Normal Color, Laceration (Left sided distal flexor forearm superficial laceration approximately 2cm. Skin and fat can be seen however does not involve flexor tendons. Bleeding is controlled. ). No: Rashes Psychiatric: Present: Alert, Oriented x 3, Anxious, Depressed Mood, Suicidal Ideation. No: Homicidal Ideation, Delusional, Hallucinations Medical Decision Making ED Course and Treatment: 10/13/17 14:55 Impression: 62 year old male presents to the Emergency department for anxiety, depression, suicidal ideation and laceration on left forearm. Plan: -- TDAP -- X-ray of Left forearm/CXR -- Labs/UA/UDS -- EKG -- Psych Evaluation -- Keflex and bactrim ordered -- Wound closure/care -- Reassess and disposition 10/13/17 15:54 -Glucose 356, ABG and IVF ordered 10/13/17 18:07 -EKG: NSR @ 97 BPM, no ST elevation or depression, no T wave inversion -Chest xray:no active disease -Lt. forearm xray: Unremarkable radiographs of the left forearm. -ABG:no signs of DKA, PH 7.39, CO2 35, HCO3 21.2 -Labs show no acute findings except glucose 356 (IVF 1000cc bolus ordered), Gap 27 -Alcohol 268 -UA show no UTI -UDS show no acute findings -Sensation intact, motor 5/5, wound irrigated with normal saline 1000cc, clean with Betadine, sterile procedure as usual, 1% lidocaine with 0.5 mL with local infiltration/digit block, 4-0 nylon suture made 4 sutures, hemostasis obtained, bacitracin apply, gauze dressing, sensation intact, motor 5/5, minimal blood loss less than 5cc, pt. tolerated the procedure well with no complication, total procedure 20 minutes, sutures usually need to be removed by day 7-10. Pain decreased and pt. feel much better. -Pt. is medically stable and clear for the psychiatric evaluation at this time. -PES is here and evaluating the patient. -Current serum glucose after fluid is 215 10/13/17 20:24 -Pt. evaluated by the PES screener adhesion tester and he spoke to the psychiatrist, stated that the patient is psychiatrically clear to be discharged home and not require for admission psychiatrically. -Pt. is sober now with no homicidal or suicidal ideation, no auditory or visual hallucination. -Discharge home with clindamycin, continue all your medication at home, sutures need to be removed by day 7-10, avoid drinking, follow up with your own pmd and specialist within 2 days, return to the ER for any new or worsening signs or symptoms. - Lab Interpretations Lab Results: 10/13/17 15:00 10/13/17 15:00 Lab Results 10/13/17 17:07: Urine Opiates Screen Negative, Urine Methadone Screen Negative, Ur Barbiturates Screen Negative, Ur Phencyclidine Scrn Negative, Ur Amphetamines Screen Negative, U Benzodiazepines Scrn Negative, U Oth Cocaine Metabols Negative, U Cannabinoids Screen Negative 10/13/17 17:07: Urine Color Yellow, Urine Appearance Clear, Urine pH 6.0, Ur Specific [place] 1.015, Urine Protein Trace H, Urine Glucose (UA) >=1000, Urine Ketones Trace H, Urine Blood Negative, Urine Nitrate Negative, Urine Bilirubin Negative, Urine Urobilinogen 0.2, Ur Leukocyte Esterase Negative, Urine RBC Negative, Urine WBC 1 - 3, Ur Epithelial Cells 1 - 3, Urine Bacteria Few 10/13/17 16:09: pCO2 35, pO2 64.0 L, HCO3 21.2, ABG pH 7.39, ABG Total CO2 22.3 , ABG O2 Saturation 94.5 L, ABG O2 Content 19.7, ABG Base Excess -3.1 L, ABG Hemoglobin 15.2, ABG Carboxyhemoglobin 1.5, POC ABG HHb (Measured) 5.4 H, ABG Methemoglobin 0.9, ABG O2 Capacity 20.8, Hgb O2 Saturation 92.2 L, FiO2 21.0 10/13/17 15:00: WBC 7.3 D, RBC 4.78, Hgb 16.5, Hct 46.1, MCV 96.4, MCH 34.5, MCHC 35.8, RDW 13.8, Plt Count 172, MPV 11.0, Gran % 57.4, Lymph % (Auto) 30.5, Dunn % (Auto) 9.3 H, Eos % (Auto) 2.3, Baso % (Auto) 0.5, Gran # 4.21, Lymph # ( Auto) 2.2, Dunn # (Auto) 0.7 H, Eos # (Auto) 0.2, Baso # (Auto) 0.04 10/13/17 15:00: Alcohol, Quantitative 268 H 10/13/17 15:00: Salicylates < 1 L, Acetaminophen < 10.0 L 10/13/17 15:00: Sodium 148, Potassium 4.2, Chloride 103, Carbon Dioxide 23, Anion Gap 27 H, BUN 13, Creatinine 0.5 L, Est GFR ( Amer) > 60, Est GFR ( Non-Af Amer) > 60, Random Glucose 356 H* D, Calcium 9.9, Magnesium 1.7, Total Bilirubin 0.4, AST 79 H, ALT 91 H, Alkaline Phosphatase 86, Total Protein 8.5 H , Albumin 4.9 H, Globulin 3.6, Albumin/Globulin Ratio 1.4 - RAD Interpretation Radiology Orders: 10/13/17 14:50 CHEST PORTABLE [RAD] Stat FOREARM LEFT [RAD] Stat Chest xray: HISTORY: medical clearance COMPARISON: No prior. FINDINGS: LUNGS: No active pulmonary disease. PLEURA: No significant pleural effusion identified, no pneumothorax apparent. CARDIOVASCULAR: Normal. OSSEOUS STRUCTURES: No significant abnormalities. VISUALIZED UPPER ABDOMEN: Normal. OTHER FINDINGS: None. IMPRESSION: No active disease. Left forearm xray: PROCEDURE: Radiographs of the Left Forearm HISTORY: Left forearm laceration COMPARISON: None available. TECHNIQUE: Frontal and lateral views obtained. FINDINGS: BONES: No fracture or destructive lesion. JOINT SPACES: Unremarkable. OTHER FINDINGS: . No gross subcutaneous emphysema. No radiopaque foreign bodies Mild vascular calcifications are present IMPRESSION: Unremarkable radiographs of the left forearm. Line Worker: Radiologist - Medication Orders Current Medication Orders: Discontinued Medications Cephalexin Monohydrate (Keflex) 500 mg PO STAT STA PRN Reason: Protocol Stop: 10/13/17 14:51 Last Admin: 10/13/17 16:44 Dose: 500 mg Sodium Chloride (Sodium Chloride 0.9%) 1,000 mls @ 999 mls/hr IV .Q1H1M STA Stop: 10/13/17 16:44 Last Admin: 10/13/17 16:43 Dose: 999 mls/hr eMAR Start Stop Document 10/13/17 16:43 GMD (Rec: 10/13/17 16:43 GMD [id number]) Intravenous Solution Start Date 10/13/17 Start Time 16:43 End Date 10/13/17 End time 17:43 Total Infusion Time 60 Lidocaine HCl (Lidocaine 1% (20ml)) 1 ml IJ STAT STA Stop: 10/13/17 15:26 Tetanus/Reduced Diphtheria/Acell Pertussis (Boostrix Vaccine Inj) 0.5 ml IM .ONCE ONE Stop: 10/13/17 14:51 Last Admin: 10/13/17 16:44 Dose: 0.5 ml Immunization Registry Document 10/13/17 16:44 GMD (Rec: 10/13/17 16:44 GMD [id number]) Immunization Registry Consent Date 03/03/17 Trimethoprim/Sulfamethoxazole (Bactrim Ds Tab) 1 tab PO STAT STA PRN Reason: Protocol Stop: 10/13/17 16:48 - PA / SAMPLE CLERK / Resident Statement MD/DO has reviewed & agrees with the documentation as recorded. - Scribe Statement The provider has reviewed the documentation as recorded by the Scribe Zcahary Ackerman. All medical record entries made by the Scribe were at my direction and personally dictated by me. I have reviewed the chart and agree that the record accurately reflects my personal performance of the history, physical exam, medical decision making, and the department course for this patient. I have also personally directed, reviewed, and agree with the discharge instructions and disposition. Disposition/Present on Arrival - Present on Arrival Any Indicators Present on Arrival: No History of DVT/PE: No History of Uncontrolled Diabetes: Yes Urinary Catheter: No History of Decub. Ulcer: No History Surgical Site Infection Following: None - Disposition Have Diagnosis and Disposition been Completed?: Yes Diagnosis: Forearm laceration, Alcohol intoxication, Hyperglycemia due to type 2 diabetes mellitus, Psychiatric care Disposition: HOME/ ROUTINE Disposition Time: 15:59 Patient Plan: Discharge Patient Problems: Current Active Problems Problem Status Onset Forearm laceration Acute Suicidal ideation Acute Alcohol intoxication Acute Hyperglycemia due to type 2 diabetes mellitus Acute Condition: IMPROVED Additional Instructions: -Discharge home with clindamycin, continue all your medication at home, sutures need to be removed by day 7-10, avoid drinking, follow up with your own pmd and specialist within 2 days, return to the ER for any new or worsening signs or symptoms. Prescriptions: Clindamycin [Cleocin] 300 mg PO TID #21 cap Referrals: Colin Rose MD [Primary Care Provider] - Follow up with primary [facility]] - Follow up with primary Forms: WORK NOTE
[2017-10-13 15:17] LABS: BASO # 0.04 K/mm3 (0.0-2.0); BASO % 0.5 % (0.0-3.0); EOS # 0.2 (0.0-0.7); EOS % 2.3 % (1.5-5.0); GRAN # 4.21 (1.4-6.5); GRAN % 57.4 % (50.0-68.0); HEMOGLOBIN 16.5 g/dL (14.0-18.0); LYMPH # 2.2 (1.2-3.4); LYMPH % 30.5 % (22.0-35.0); MEAN CELL VOLUME 96.4 fl (80.0-105.0); MEAN CORPUSCULAR HEMOGLOBIN 34.5 pg (25.0-35.0); MEAN CORPUSCULAR HGB CONC 35.8 g/dl (31.0-37.0); MONO # 0.7 (0.1-0.6); MONO % 9.3 % (1.0-6.0); RBC 4.78 10^6/uL (3.5-6.1); RED CELL DISTRIBUTION WIDTH 13.8 % (11.5-14.5); WHITE BLOOD COUNT 7.3 10^3/ul (4.5-11.0)
[2017-10-13] MEDS ORDERED: Lidocaine 1% Inj (20ml) IJ STA (15:25)
[2017-10-13 15:26] VITALS: TEMP 98.2
[2017-10-13 15:29] LABS: ACETAMINOPHEN < 10.0 ug/ml (10.0-20.0); SALICYLATE < 1 mg/dL (2.0-20.0)
[2017-10-13 15:44] LABS: ALB/GLOB RATIO 1.4 (1.1-1.8); ALBUMIN 4.9 g/dL (3.0-4.8); ALT/SGPT 91 U/L (7-56); AST/SGOT 79 U/L (17-59); BLOOD UREA NITROGEN 13 mg/dL (7-21); CALCIUM 9.9 mg/dL (8.4-10.5); GFR AFRICAN-AMERICAN > 60; GFR NON-AFRICAN AMERICAN > 60
[2017-10-13] MEDS ORDERED: Sodium Chloride 0.9% 1,000 ML IV STA (15:44)
[2017-10-13 16:13] LABS: ARTERIAL BLOOD GAS HCO3 21.2 mmol/L (21-28); ARTERIAL BLOOD GAS HEMOGLOBIN 15.2 g/dL (11.7-17.4); ARTERIAL BLOOD GAS O2 CAPACITY 20.8 mL/dl (16-24); ARTERIAL BLOOD GAS O2 CONTENT 19.7 ML/dl (15-23); ARTERIAL BLOOD GAS O2 SAT 94.5 % (95-98); ARTERIAL BLOOD GAS PCO2 35 mm/Hg (35-45); ARTERIAL BLOOD GAS PH 7.39 (7.35-7.45); ARTERIAL BLOOD GAS TCO2 22.3 mmol.L (22-28)
[2017-10-13] MEDS ORDERED: Tmp-Smz 800 mg-160 mg DS Tab PO STA (16:47)
--- NOTE | 2017-10-13 17:27 | RAD ---
HISTORY: medical clearance COMPARISON: Comparison chest 09/25/2016 FINDINGS: LUNGS: The interstitial markings are slightly increased and coarsened. Rule out sequela of reactive/inflammatory airway disease or viral illness. Minor linear atelectasis or scarring left lung base PLEURA: No significant pleural effusion identified, no pneumothorax apparent. CARDIOVASCULAR: Normal. OSSEOUS STRUCTURES: No significant abnormalities. VISUALIZED UPPER ABDOMEN: Normal. OTHER FINDINGS: None. IMPRESSION: The interstitial markings are slightly increased and coarsened. Rule out sequela of reactive/inflammatory airway disease or viral illness. Minor linear atelectasis or scarring left lung base PLEURA:
--- NOTE | 2017-10-13 17:28 | RAD ---
PROCEDURE: Radiographs of the Left Forearm HISTORY: Left forearm laceration COMPARISON: None available. TECHNIQUE: Frontal and lateral views obtained. FINDINGS: BONES: No fracture or destructive lesion. JOINT SPACES: Unremarkable. OTHER FINDINGS: . No gross subcutaneous emphysema. No radiopaque foreign bodies Mild vascular calcifications are present IMPRESSION: Unremarkable radiographs of the left forearm.
[2017-10-13 17:33] LABS: URINE APPEARANCE CLEAR (CLEAR); URINE BILIRUBIN NEGATIVE (NEGATIVE); URINE BLOOD NEGATIVE (NEGATIVE); URINE COLOR YELLOW (YELLOW); URINE GLUCOSE (UA) >=1000 mg/dL (NEGATIVE); URINE LEUKOCYTE ESTERASE NEGATIVE Leu/uL (NEGATIVE); URINE PROTEIN TRACE mg/dL (<30 mg/dL); URINE UROBILINOGEN 0.2 E.U./dL (<1 E.U./dL)
[2017-10-13 17:42] LABS: URINE BACTERIA FEW (NEG); URINE RBC NEGATIVE /hpf (0-2)
[2017-10-13 17:48] LABS: BARBITURATES, UR NEGATIVE (NEGATIVE); BENZODIAZEPINES, UR NEGATIVE (NEGATIVE); OPIATES, UR NEGATIVE (NEGATIVE); PHENCYCLIDINE, UR NEGATIVE (NEGATIVE)
[2017-10-13 21:08] VITALS: BP 121/84; PULSE 73; RESP 16; O2SAT 100
--- NOTE | 2017-10-14 13:47 | CARD ---
APPROVED REPORT EKG Measurement Heart [id number] [id number] <Conclusion> Normal sinus rhythm Normal ECG
== END 2017-10-13 21:08 | disposition home or self-care (01) ==
LOC: ED 14:28
DX: S51.812A Laceration without foreign body of left forearm, initial encounter (principal); X78.9XXA Intentional self-harm by unspecified sharp object, initial encounter; Y92.009 Unspecified place in unspecified non-institutional (private) residence as the place of occurrence of the external cause; F10.129 Alcohol abuse with intoxication, unspecified; E11.65 Type 2 diabetes mellitus with hyperglycemia; E78.00 Pure hypercholesterolemia, unspecified; I10 Essential (primary) hypertension; Z87.891 Personal history of nicotine dependence; J44.9 Chronic obstructive pulmonary disease, unspecified; Z23 Encounter for immunization
CPT/HCPCS: 12001; 36600; 71045; 73090; 80053; 81001; 82803; 83735; 85025; 90471; 90715; 90791; 93005; 96360; 99284; G0480; J7030

== ENCOUNTER 2018-01-14 05:12 | Inpatient (IN) | payer MEDICARE, OTHER ==
--- NOTE | 2018-01-14 05:27 | ED PDOC ---
Arrival/HPI - General Time Seen by Provider: 01/14/18 05:18 Historian: Patient - History of Present Illness Narrative History of Present Illness (Text): 01/14/18 05:24 62 year old male, whose past medical history includes alcohol abuse, hypertension, high cholesterol, diabetes, TIA and COPD on CPAP, presents to the emergency department stating he had been drinking alcohol this evening. Patient states he felt some palpitations. Patient also states he is depressed and states "I just want to ". Patient denies any fever, chills, chest pain, shortness of breath, nausea, vomiting, diarrhea, urinary symptoms, back pain, neck pain, headache, dizziness, or any other complaints. PMD: Dr. Rose Time/Duration: Other (this evening) Symptom Onset: Gradual Symptom Course: Unchanged Activities at Onset: Light Context: Home Past Medical History - Provider Review Nursing Documentation Reviewed: Yes - Infectious Disease Hx of Infectious Diseases: None - Cardiac Hx Cardiac Disorders: Yes Hx Hypertension: Yes - Pulmonary Hx Respiratory Disorders: Yes Hx Chronic Obstructive Pulmonary Disease (COPD): Yes Other/Comment: LIGHT SMOKER <12/WK - Neurological Hx Neurological Disorder: Yes Hx Transient Ischemic Attacks (TIA): Yes - HEENT Hx HEENT Disorder: Yes (WEARS GLASSES) - Renal Hx Renal Disorder: Yes (PARTIAL NEPHRECTOMY) Hx Kidney Stones: Yes - Endocrine/Metabolic Hx Endocrine Disorders: Yes Hx Diabetes Mellitus Type 2: Yes - Hematological/Oncological Hx Cancer: No - Integumentary Hx Dermatological Disorder: No - Musculoskeletal/Rheumatological Hx Musculoskeletal Disorders: Yes Hx Falls: Yes Hx Herniated Disk: Yes (lumbar spine) Hx Osteoarthritis: Yes - Gastrointestinal Hx Gastrointestinal Disorders: No - Genitourinary/Gynecological Hx Genitourinary Disorders: No - Psychiatric Hx Psychophysiologic Disorder: Yes (ETOH ABUSE,BINGE DRINKS.) Hx Substance Use: No - Surgical History Hx Appendectomy: Yes Hx [place] [facility] [place] Other/Comment: Vasectomy - Suicidal Assessment Feels Threatened In Home Enviroment: No Family/Social History - Physician Review Nursing Documentation Reviewed: Yes Family/Social History: No Known Family HX Smoking Status: Former Smoker Hx Alcohol Use: Yes (ETOH ABUSE.BINGE DRINKS) Hx Substance Use: No Hx Substance Use Treatment: No Allergies/Home Meds Allergies/Adverse Reactions: Allergies No Known Allergies Allergy (Verified 10/13/17 14:41) Home Medications: Home Meds Medication Instructions Recorded Confirmed Benzonatate 100 mg PO DAILY 09/26/16 09/26/16 Gabapentin [Neurontin] 300 mg PO BID 09/26/16 09/26/16 Tiotropium [Spiriva] 18 mcg IH DAILY 09/26/16 09/26/16 Review of Systems - Physician Review All systems were reviewed & negative as marked: Yes - Review of Systems Constitutional: absent: Fevers, Other (chills) Respiratory: absent: SOB Cardiovascular: Palpitations. absent: Chest Pain Gastrointestinal: absent: Diarrhea, Nausea, Vomiting Musculoskeletal: absent: Back Pain, Neck Pain Neurological: absent: Headache, Dizziness Psychiatric: Depression, Suicidal Ideation Physical Exam Vital Signs Reviewed: Yes Vital Signs Temp Pulse Resp BP Pulse Ox 01/14/18 05:30 98.1 F 94 H 18 153/81 H 97 Appearance: Positive for: Well-Appearing, Non-Toxic, Comfortable Pain Distress: None Mental Status: Positive for: Alert and Oriented X 3 - Systems Exam Head: Present: Atraumatic, Normocephalic Pupils: Present: PERRL Extroacular Muscles: Present: EOMI Conjunctiva: Present: Normal Mouth: Present: Moist Mucous Membranes Neck: Present: Normal Range of Motion Respiratory/Chest: Present: Clear to Auscultation, Good Air Exchange. No: Respiratory Distress, Accessory Muscle Use Cardiovascular: Present: Regular Rate and Rhythm, Normal S1, S2. No: Murmurs Abdomen: No: Tenderness, Distention, Peritoneal Signs Back: Present: Normal Inspection Upper Extremity: Present: Normal Inspection. No: Cyanosis, Edema Lower Extremity: Present: Normal Inspection. No: Edema Neurological: Present: GCS=15, CN II-XII Intact, Motor Func Grossly Intact, Normal Sensory Function Skin: Present: Warm, Dry, Normal Color. No: Rashes Psychiatric: Present: Alert, Oriented x 3, Intoxicated Medical Decision Making ED Course and Treatment: 01/14/18 05:26 Impression: 62 year old male presents complaining of palpitations at times and admits to drinking this evening. Patient also reports being depressed and suicidal ideation. Plan: -- EKG -- Labs -- Chest X-ray -- One to one -- PES evaluation -- Reassess and disposition Prior Visits: Notes and results from previous visits were reviewed. Patient was last seen in the emergency department on 10/13/17 presents complaining of depression, anxiety and suicidal ideation prior to arrival. Admits to drinking alcohol. Patient was discharged home. Progress Notes: 01/14/18 05:56 EKG shows NSR at 99 BPM with no acute changes. Interpreted by me. 01/14/18 06:13 CXR Impression: As read by me, no acute process. 01/14/18 07:[address] Stewart/pending sobriety /PES evaluation/final disposition. - Lab Interpretations Lab Results: 01/14/18 06:03 01/14/18 06:03 Lab Results 01/14/18 06:03: WBC 6.9, RBC 4.49, Hgb 15.3, Hct 42.7, MCV 95.1, MCH 34.1, MCHC 35.8, RDW 14.8 H, Plt Count 169, MPV 10.3 01/14/18 06:03: Alcohol, Quantitative 499 H* 01/14/18 06:03: Sodium 146, Potassium 3.5 L, Chloride 102, Carbon Dioxide 24, Anion Gap 23 H, BUN 6 L, Creatinine 0.4 L, Est GFR ( Amer) > 60, Est GFR (Non-Af Amer) > 60, Random Glucose 278 H, Calcium 8.6, Total Bilirubin 0.5, AST 49, ALT 46, Alkaline Phosphatase 85, Lactate Dehydrogenase 459, Total Creatine Kinase 124, Troponin I < 0.01, Total Protein 7.9, Albumin 4.4, Globulin 3.4, Albumin/Globulin Ratio 1.3 01/14/18 06:03: PT 11.0, INR 0.96, APTT 29.3 I have reviewed the lab results: Yes - RAD Interpretation Radiology Orders: 01/14/18 05:35 CHEST PORTABLE [RAD] Stat - EKG Interpretation Interpreted by ED Physician: Yes Type: 12 lead EKG - Scribe Statement The provider has reviewed the documentation as recorded by the [facility] Provider Scribe Attestation: All medical record entries made by the Scribe were at my direction and personally dictated by me. I have reviewed the chart and agree that the record accurately reflects my personal performance of the history, physical exam, medical decision making, and the department course for this patient. I have also personally directed, reviewed, and agree with the discharge instructions and disposition. Disposition/Present on Arrival - Present on Arrival Any Indicators Present on Arrival: No History of DVT/PE: No History of Uncontrolled Diabetes: Yes Urinary Catheter: No History Surgical Site Infection Following: None - Disposition Have Diagnosis and Disposition been Completed?: No Diagnosis: Alcohol intoxication, Depression Disposition Time: 07:00 Patient Problems: Current Active Problems Problem Status Onset Alcohol intoxication Acute Depression Acute Condition: STABLE Referrals: Colin Rose MD [Primary Care Provider] - Follow up with primary
[2018-01-14 05:30] VITALS: BMI 30.1
[2018-01-14 06:28] LABS: HEMOGLOBIN 15.3 g/dL (14.0-18.0); MEAN CELL VOLUME 95.1 fl (80.0-105.0); MEAN CORPUSCULAR HEMOGLOBIN 34.1 pg (25.0-35.0); MEAN CORPUSCULAR HGB CONC 35.8 g/dl (31.0-37.0); MEAN PLATELET VOLUME 10.3 fl (7.0-11.0); RBC 4.49 10^6/uL (3.5-6.1); RED CELL DISTRIBUTION WIDTH 14.8 % (11.5-14.5); WHITE BLOOD COUNT 6.9 10^3/ul (4.5-11.0)
[2018-01-14 06:38] LABS: ALB/GLOB RATIO 1.3 (1.1-1.8); ALBUMIN 4.4 g/dL (3.0-4.8); ALT/SGPT 46 U/L (7-56); AST/SGOT 49 U/L (17-59); BLOOD UREA NITROGEN 6 mg/dL (7-21); CALCIUM 8.6 mg/dL (8.4-10.5); GFR NON-AFRICAN AMERICAN > 60
[2018-01-14 06:39] LABS: INR 0.96; PARTIAL THROMBOPLASTIN TIME 29.3 Seconds (25.1-36.5)
[2018-01-14 06:49] LABS: TROPONIN I < 0.01 ng/mL
--- NOTE | 2018-01-14 07:51 | ED PDOC ---
Physical Exam Vital Signs Reviewed: Yes Vital Signs Temp Pulse Resp BP Pulse Ox 01/14/18 17:00 98.4 F 91 H 18 136/79 98 01/14/18 13:30 98.1 F 91 H 20 144/70 97 01/14/18 11:00 98.2 F 97 H 19 100 01/14/18 09:00 98.0 F 95 H 18 144/80 99 01/14/18 07:05 98.4 F 90 18 99 01/14/18 05:30 98.1 F 94 H 18 153/81 H 97 Temperature: Afebrile Blood Pressure: Hypertensive Pulse: Tachycardic Respiratory Rate: Normal Medical Decision Making ED Course and Treatment: 01/14/18 07:00 Case endorsed to me by Dr. Craven/pending sobriety /PES evaluation/final disposition. 01/14/18 04:00 Patient has been admitted. - Lab Interpretations Lab Results: 01/14/18 06:03 01/14/18 06:03 Lab Results 01/14/18 06:03: WBC 6.9, RBC 4.49, Hgb 15.3, Hct 42.7, MCV 95.1, MCH 34.1, MCHC 35.8, RDW 14.8 H, Plt Count 169, MPV 10.3 01/14/18 06:03: Alcohol, Quantitative 499 H* 01/14/18 06:03: Sodium 146, Potassium 3.5 L, Chloride 102, Carbon Dioxide 24, Anion Gap 23 H, BUN 6 L, Creatinine 0.4 L, Est GFR ( Amer) > 60, Est GFR (Non-Af Amer) > 60, Random Glucose 278 H, Calcium 8.6, Total Bilirubin 0.5, AST 49, ALT 46, Alkaline Phosphatase 85, Lactate Dehydrogenase 459, Total Creatine Kinase 124, Troponin I < 0.01, Total Protein 7.9, Albumin 4.4, Globulin 3.4, Albumin/Globulin Ratio 1.3 01/14/18 06:03: PT 11.0, INR 0.96, APTT 29.3 - RAD Interpretation Radiology Orders: 01/14/18 05:35 CHEST PORTABLE [RAD] Stat - Medication Orders Current Medication Orders: Folic Acid (Folic Acid) 1 mg PO DAILY CHARLES Lorazepam (Ativan) 2 mg PO QID CHARLES PRN Reason: Protocol Lorazepam (Ativan) 2 mg PO Q6H PRN; Protocol PRN Reason: Anxiety Lorazepam (Ativan) 2 mg IM Q6H PRN; Protocol PRN Reason: Anxiety Mirtazapine (Remeron) 15 mg PO HS CHARLES Multivitamins (Thera Tab) 1 tab PO 0800 CHARLES Thiamine HCl (Vitamin B1 Tab) 100 mg PO DAILY CHARLES Ziprasidone (Geodon Cap) 20 mg PO Q6H PRN; Protocol PRN Reason: Agitation Ziprasidone (Geodon Inj) 20 mg IM Q6H PRN; Protocol PRN Reason: Agitation Discontinued Medications Haloperidol Lactate (Haldol) 5 mg IM STAT STA PRN Reason: Protocol Stop: 01/14/18 08:02 Last Admin: 01/14/18 08:03 Dose: 5 mg IM Administration Charges Document 01/14/18 08:03 [email or web address] (Rec: 01/14/18 08:03 [id number]) Injection Site MAR Injection Site Left Deltoid Charges for Administration # of IM Administrations 1 - Scribe Statement The provider has reviewed the documentation as recorded by the Scribe Lucinda Urbinah All medical record entries made by the Scribe were at my direction and personally dictated by me. I have reviewed the chart and agree that the record accurately reflects my personal performance of the history, physical exam, medical decision making, and the department course for this patient. I have also personally directed, reviewed, and agree with the discharge instructions and disposition. Disposition/Present on Arrival - Present on Arrival Any Indicators Present on Arrival: No History of DVT/PE: No History of Uncontrolled Diabetes: Yes Urinary Catheter: No History of Decub. Ulcer: No History Surgical Site Infection Following: None - Disposition Have Diagnosis and Disposition been Completed?: Yes Diagnosis: Alcohol intoxication, Depression Disposition: HOSPITALIZED Disposition Time: 15:30 Patient Problems: Current Active Problems Problem Status Onset Alcohol intoxication Acute Depression Acute Condition: STABLE
--- NOTE | 2018-01-14 08:42 | RAD ---
Date of service: 01/14/2018 HISTORY: Palpitations. COMPARISON: No prior. FINDINGS: LUNGS: No discrete infiltrates/active pulmonary disease. Increased interstitial markings are stable. PLEURA: No significant pleural effusion identified, no pneumothorax apparent. CARDIOVASCULAR: Normal. OSSEOUS STRUCTURES: No significant abnormalities. VISUALIZED UPPER ABDOMEN: Normal. OTHER FINDINGS: None. IMPRESSION: No active disease. No significant interval change compared to the prior examination(s).
--- NOTE | 2018-01-14 09:44 | CARD ---
APPROVED REPORT Date of service: 01/14/2018 EKG Measurement Heart [id number] <Conclusion> Normal sinus rhythm Prolonged QTc
--- NOTE | 2018-01-14 19:01 | PCM.BM ---
<Andressa Goel - Last Filed: 01/14/18 18:58> Treatment Plan Problems - Problems identified on initial assessmt INEFFECTIVE INDV COPING Date Initiated: 01/14/18 Time Initiated: 19:00 Assessment reference: NA Status: Active Priority: 1 FEELING WORTHLESSNESS Date Initiated: 01/14/18 Time Initiated: 19:00 Assessment reference: NA Status: Active Priority: 2 SOCIAL ISOLATION Date Initiated: 01/14/18 Time Initiated: 19:00 Assessment reference: NA Status: Active Priority: 3 ALCOHOL ABUSE Date Initiated: 01/14/18 Time Initiated: 19:00 Assessment reference: NA Status: Active Priority: 4 Treatment assets and liabiliti Patient Assests: cooperative, motivated, ADL independent, cognitively intact Patient Liabilities: poor support system, substance abuse - Milieu Protocol Maintain good personal hygiene: daily Encourage regular showers, daily Remind patient to perform daily oral care, daily Assist patient to perform ADL's Maintain personal safety: every shift Educate patient to report safety concerns to staff, every shift Monitor environment for contraband/sharps Medication safety: Monitor for expected outcome, potential side effects: every shift, Assess barriers to learning: every shift, Assess readiness for medication education: every shift Discharge/Continuing Care - Education Needs Education Needs: Patient Medication, Patient Diagnosis/Disease Process, Patient Coping Skills, Patient Community resources, Patient Activities of Daily Living, Patient Nutrition, Patient Health Practices/Safety, Patient Personal Hygiene/Grooming, Patient Aftercare Safety Plan - Discharge Discharge Criteria: Tolerates medication w/o severe side effects, Free of Suicidal thoughts, Free of agitation, Normal sleep pattern, Ability to care for self, No longer exhibiting s/s of withdrawal, Reduction of target symptoms Discharge to:: Home <Tiffani Tadeo - Last Filed: 01/15/18 14:45> - Diagnosis (1) MDD (major depressive disorder) Status: Acute Interventions: 01/15/18 14:46 Psychoeducation Psychopharmacology/adjustment of medications as needed/ monitoring possible side effects Evaluate pt on daily basis Compliance with medications and follow up appointments Suicide and homicide risk assessment and prevention Relapse prevention Reduction of symptoms Improve functional status Family involvement As outpatient: cognitive behavioral therapy (2) Alcohol use disorder Status: Acute Interventions: 01/15/18 14:46 Monitoring withdrawal symptoms Medical detoxification Pharmacotherapy for alcohol/benzos/opioid dependence Maintaining sobriety Relapse prevention Possible rehabilitation Motivational interviewing 12-step programs: AA meetings <Claudia Leyva - Last Filed: 01/16/18 11:30>
[2018-01-15 08:19] LABS: HDL CHOLESTEROL 69 mg/dL (29-60)
[2018-01-15 08:30] LABS: LDL CHOLESTEROL 151 mg/dL (0-129)
[2018-01-15 08:38] LABS: FREE T4 0.76 ng/dL (0.78-2.19)
[2018-01-15] MEDS: Multivitamin Therapeutic Tab PO SCH (09:24)
[2018-01-15] MEDS: Insulin Lispro (humaLOG) MIX 75/25(10 ml) SC SCH ×2 (13:00→17:48)
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
[2018-01-15 16:00] LABS: PH,URINE 8.5 (4.7-8.0); URINE APPEARANCE CLEAR (CLEAR); URINE BILIRUBIN NEGATIVE (NEGATIVE); URINE BLOOD NEGATIVE (NEGATIVE); URINE COLOR LIGHT YELLOW (YELLOW); URINE GLUCOSE (UA) >=1000 mg/dL (NEGATIVE); URINE LEUKOCYTE ESTERASE NEGATIVE Leu/uL (NEGATIVE); URINE PROTEIN TRACE mg/dL (<30 mg/dL); URINE UROBILINOGEN 0.2 E.U./dL (<1 E.U./dL)
[2018-01-15 16:14] LABS: URINE BACTERIA NEG (NEG); URINE RBC NEGATIVE /hpf (0-2); URINE WBC NEGATIVE /hpf (0-6)
[2018-01-15] MEDS: Insulin Lispro (humaLOG) MEDIUM Coverage SC SCH ×2 (17:22→21:29)
--- NOTE | 2018-01-15 22:30 | PN ---
DATE: 01/15/2018 SUBJECTIVE: The patient is in the Behavioral Care Unit at [facility] in [place]. The patient was admitted with depression, alcoholism-associated depression. The patient also has history of feeling dizzy. He presented to the Emergency Room and was admitted after evaluation in the Emergency Room to the Behavioral Care Unit. PAST HISTORY: Significant that he has history of partial nephrectomy, the patient has history of hypertension, diabetes mellitus, chronic lung disease, the patient has also history of cerebrovascular insufficiency, coronary artery disease, has had a cardiac cath 4 years ago, the patient also has history of appendectomy and the patient has been residing in [place] for a period of time. He has no history of any accidents. ALLERGIES: HE IS NOT ALLERGIC TO ANY MEDICATIONS AT THIS TIME. MEDICATIONS: He has a list of medications for which has been prescribed for him for his medical diagnoses. He is dependent on insulin. He also has chronic lung disease. He has respiratory treatment with bronchodilators. PHYSICAL EXAMINATION: VITAL SIGNS: The patient's pulse is 84, blood pressure 130/72, respirations are 20 per minute. The patient is able to ambulate without much shortness of breath. HEAD: Normocephalic. NECK: The thyroid is not enlarged. The carotid pulses are present in the neck. There is no lymphadenopathy. LUNGS: Trachea central. Breath sounds are vesicular. No adventitious sounds. HEART: Normal sinus rhythm. S1 and S2 present. No murmurs. ABDOMEN: Soft. Liver and spleen not palpable. CENTRAL NERVOUS SYSTEM: The patient has no focal deficits, but appears to be depressed. LABORATORY DATA: The patient's blood work done in the hospital: The hemoglobin is 15.3, he has a platelet count of , white count is 6,900. His chemistry, the patient's blood sugar was 75 and it was up to 309. The patient's cholesterol is elevated, it is 255. The patient's thyroid function studies: T4 is slightly low. The TSH is normal range. The patient's x-ray of the chest is clear. ASSESSMENT AND PLAN: The patient is currently on medications that he has been placed on. He is on ramipril mg that is Altace once daily, the patient is on Ativan, aspirin, the patient is on folic acid and the patient is also on Geodon 20 mg every 6 hours p.r.n. for agitation. The patient is on metformin 1000 mg b.i.d.; insulin coverage, Humalog 35 units with each meal; breakfast, lunch, and dinner. The patient is on Lipitor 40 mg daily, gabapentin 300 mg three times a day, the patient is also getting Wellbutrin 75 mg b.i.d. His diet is heart-healthy diet. He will follow up on his medical conditions. The diabetic state seems to be uncontrolled at this time. His blood pressure is controlled and his cardiac evaluations are within normal range and we will follow up. Nuno Carcamo MD
[2018-01-16 01:43] LABS: BARBITURATES, UR NEGATIVE (NEGATIVE); BENZODIAZEPINES, UR NEGATIVE (NEGATIVE); OPIATES, UR NEGATIVE (NEGATIVE); PHENCYCLIDINE, UR NEGATIVE (NEGATIVE)
[2018-01-16] MEDS: Multivitamin Therapeutic Tab PO SCH (08:28)
[2018-01-16] MEDS: Insulin Lispro (humaLOG) MIX 75/25(10 ml) SC SCH ×2 (08:29→17:26)
[2018-01-16] MEDS: Insulin Lispro (humaLOG) MEDIUM Coverage SC SCH ×4 (08:53→21:48)
--- NOTE | 2018-01-16 09:54 | PN ---
DATE: 01/16/2018 SUBJECTIVE: The patient is in [facility] in Behavioral Care Unit. The patient was admitted under behavioral care physician for depression, psychotic behavior, suicidal tendency. Apparently, the patient has significant medical history. He has had a TIA in the past. The patient also had coronary artery disease, hypertension, diabetes mellitus, chronic lung disease, alcoholism. The patient also has history of surgery on one kidney, purpose and the reason is not known. The patient seen this morning ambulating, he is very agitated. PHYSICAL EXAMINATION: VITAL SIGNS: The patient's pulse is 91, blood pressure 135/75, respirations are 19. The patient's temperature is 99.1. HEENT: The head is normocephalic. The patient has a reddish color. NECK: The thyroid is not enlarged. Carotid pulse are present. HEART: Normal sinus rhythm. S1, S2 present. No murmurs, no rubs. LUNGS: Trachea central. Breath sounds are vesicular. No adventitious sounds. ABDOMEN: Soft. Liver and spleen not palpable. No tenderness, no masses. FONDANT PUFF [employer]KER: The patient is ambulating. He is able to talk, but has very interrupted speech pattern and shows agitation. LABORATORY DATA: Blood work, no change from yesterday. MEDICATIONS: The patient has insulin coverage for diabetes, the patient gets insulin coverage with every meal, breakfast, lunch and dinner. The patient's other medications consist of Ativan for agitation. The patient is also on Geodon 20 mg every 6 hours. The patient is on Altace 20 mg daily, Lipitor, metformin, gabapentin, amlodipine, Wellbutrin, thiamine and the patient is on a heart-healthy diet. His clinical condition seemed to be stable. His overall prognosis is guarded. The patient is going to be treated, needs more medications to control his mental state. We will follow up. Nuno Carcamo MD
--- NOTE | 2018-01-16 10:56 | CP.PCM.CON ---
History of Present Illness - History of Present Illness History of Present Illness: Pulmonary Consult: CPAP Management JENNIFER/COPD 62M former smoker with past medical history include of COPD, JENNIFER on CPAP, alcohol abuse, hypertension, high cholesterol, diabetes, TIA and admitted to inpatient psych with etoh abuse/rehab. He has a hx if smoking for 20 years and quit 20 years ago. He is on spiriva at home. No PFTs records available to me. He grew up in [facility] and moved to the [place]. No hx of TB. He was dx with JENNIFER over 10 years ago and has been on CPAP every night. He describes an auto-pap mode. Currently no sob, no cough, no fever no chest pain. PMHX: as above Psurg hx: as above Allx: NKDA Fam HX : HTN Social hx as above ROS otherwise neg Past Patient History - Infectious Disease Hx of Infectious Diseases: None - Past Social History Smoking Status: Former Smoker - CARDIAC Hx Cardiac Disorders: Yes Hx Hypertension: Yes - PULMONARY Hx Chronic Obstructive Pulmonary Disease (COPD): Yes Hx Sleep Apnea: Yes Hx Tuberculosis: No - NEUROLOGICAL Hx Neurological Disorder: No HX Cerebrovascular Accident: No Hx Seizures: No - HEENT Hx HEENT Problems: Yes (WEARS GLASSES) - RENAL Hx Chronic Kidney Disease: Yes (PARTIAL NEPHRECTOMY) Hx Kidney Stones: Yes - ENDOCRINE/METABOLIC Hx Endocrine Disorders: Yes Hx Diabetes Mellitus Type 2: Yes - HEMATOLOGICAL/ONCOLOGICAL Hx Blood Disorders: No Hx Cancer: No Hx Human Immunodeficiency Virus (HIV): No - INTEGUMENTARY Hx Dermatological Problems: No - MUSCULOSKELETAL/RHEUMATOLOGICAL Hx Musculoskeletal Disorders: Yes Hx Arthritis: Yes Hx Falls: Yes Hx Herniated Disk: Yes (lumbar spine) Hx Osteoarthritis: Yes - GASTROINTESTINAL Hx Gastrointestinal Disorders: No - GENITOURINARY/GYNECOLOGICAL Hx Genitourinary Disorders: No Hx Sexually Transmitted Disorders: No - PSYCHIATRIC Hx Psychophysiologic Disorder: No Hx Anxiety: Yes Hx Bipolar Disorder: No Hx Depression: Yes Hx Schizophrenia: No Hx Substance Use: No - SURGICAL HISTORY Hx Appendectomy: Yes Hx Cardiac Catheterization: Yes (4 months ago [place] [facility] [place] Other/Comment: Vasectomy - ANESTHESIA Hx Anesthesia: Yes Meds Allergies/Adverse Reactions: Allergies Allergy/AdvReac Type Severity Reaction Status Date / Time No Known Allergies Allergy Verified 01/14/18 17:27 - Medications Medications: Current Medications Amlodipine Besylate (Norvasc) 10 mg PO DAILY [facility] Last Admin: 01/16/18 08:28 Dose: 10 mg Aspirin (Aspirin Chewable) 81 mg PO DAILY [facility] Last Admin: 01/16/18 08:28 Dose: 81 mg Atorvastatin Calcium (Lipitor) 40 mg PO DIN [facility] Last Admin: 01/15/18 17:37 Dose: 40 mg Citalopram Hydrobromide (Celexa) 10 mg PO DAILY [facility] Folic Acid (Folic Acid) 1 mg PO DAILY [facility] Last Admin: 01/16/18 08:28 Dose: 1 mg Gabapentin (Neurontin) 300 mg PO TID [facility]; Protocol Last Admin: 01/16/18 08:28 Dose: 300 mg Insulin Human Lispro (Humalog Med) 0 units SC ACHS [facility]; Protocol Last Admin: 01/16/18 08:53 Dose: 5 units Insulin Lispro Protam/Lispro Human (Humalog Mix 75/25) 35 units SC TID [facility] Last Admin: 01/16/18 08:29 Dose: 35 units Lorazepam (Ativan) 2 mg PO QID [facility]; Protocol Last Admin: 01/16/18 08:27 Dose: 2 mg Lorazepam (Ativan) 2 mg PO Q6H PRN; Protocol PRN Reason: Anxiety Last Admin: 01/16/18 01:36 Dose: 2 mg Lorazepam (Ativan) 2 mg IM Q6H PRN; Protocol PRN Reason: Anxiety Metformin HCl (Glucophage) 1,000 mg PO BID [facility] Last Admin: 01/16/18 08:28 Dose: 1,000 mg Multivitamins (Thera Tab) 1 tab PO 0800 [facility] Last Admin: 01/16/18 08:28 Dose: 1 tab Quetiapine Fumarate (Seroquel) 25 mg PO HS [facility]; Protocol Ramipril (Altace) 20 mg PO DAILY [facility] Last Admin: 01/16/18 10:06 Dose: 20 mg Thiamine HCl (Vitamin B1 Tab) 100 mg PO DAILY [facility] Last Admin: 01/16/18 08:28 Dose: 100 mg Ziprasidone (Geodon Cap) 20 mg PO Q6H PRN; Protocol PRN Reason: Agitation Ziprasidone (Geodon Inj) 20 mg IM Q6H PRN; Protocol PRN Reason: Agitation Physical Exam - Constitutional Appears: Non-toxic, Unkempt - Head Exam Head Exam: NORMAL INSPECTION - Eye Exam Eye Exam: EOMI, PERRL - Respiratory Exam Respiratory Exam: Clear to Auscultation Bilateral, NORMAL BREATHING PATTERN - Cardiovascular Exam Cardiovascular Exam: REGULAR RHYTHM - Extremities Exam Additional comments: tremulous, no e/c/c/ - Psychiatric Exam Psychiatric exam: Anxious - Skin Skin Exam: Dry, Intact, Normal Color, Warm Results - Vital Signs Recent Vital Signs: Last Vital Signs Temp 99.1 F 01/16/18 07:11 Pulse 91 H 01/16/18 07:11 Resp 19 01/16/18 07:11 BP 135/75 01/16/18 08:28 Pulse Ox 96 01/14/18 18:24 - Labs Result Diagrams: 01/14/18 06:03 01/14/18 06:03 Labs: Laboratory Results - last 24 hr 01/15/18 01/15/18 01/15/18 07:49 08:00 11:34 POC Glucose (mg/dL) 275 H 309 H Urine Color Urine Appearance Urine pH Ur Specific [place] Urine Protein Urine Glucose (UA) Urine Ketones Urine Blood Urine Nitrate Urine Bilirubin Urine Urobilinogen Ur Leukocyte Esterase Urine RBC Urine WBC Ur Epithelial Cells Urine Bacteria Urine Opiates Screen Urine Methadone Screen Ur Barbiturates Screen Ur Phencyclidine Scrn Ur Amphetamines Screen U Benzodiazepines Scrn U Oth Cocaine Metabols U Cannabinoids Screen RPR Nonreactive 01/15/18 01/15/18 01/15/18 15:39 16:10 21:05 POC Glucose (mg/dL) 148 H 262 H Urine Color Light yellow Urine Appearance Clear Urine pH 8.5 Ur Specific [place] 1.015 Urine Protein Trace H Urine Glucose (UA) >=1000 Urine Ketones 15 H Urine Blood Negative Urine Nitrate Negative Urine Bilirubin Negative Urine Urobilinogen 0.2 Ur Leukocyte Esterase Negative Urine RBC Negative Urine WBC Negative Ur Epithelial Cells None Urine Bacteria Neg Urine Opiates Screen Urine Methadone Screen Ur Barbiturates Screen Ur Phencyclidine Scrn Ur Amphetamines Screen U Benzodiazepines Scrn U Oth Cocaine Metabols U Cannabinoids Screen RPR 01/16/18 01:02 POC Glucose (mg/dL) Urine Color Urine Appearance Urine pH Ur Specific [place] Urine Protein Urine Glucose (UA) Urine Ketones Urine Blood Urine Nitrate Urine Bilirubin Urine Urobilinogen Ur Leukocyte Esterase Urine RBC Urine WBC Ur Epithelial Cells Urine Bacteria Urine Opiates Screen Negative Urine Methadone Screen Negative Ur Barbiturates Screen Negative Ur Phencyclidine Scrn Negative Ur Amphetamines Screen Negative U Benzodiazepines Scrn Negative U Oth Cocaine Metabols Negative U Cannabinoids Screen Negative RPR Assessment & Plan - Assessment and Plan (Free Text) Assessment: 62 M former smoker from [facility] whose past medical history includes COPD, JENNIFER on CPAP, alcohol abuse, hypertension, high cholesterol, diabetes, TIA admitted to inpatient psych for etoh rehab. In regards to his COPD, CXR not suggestive of emphysema. His Bicarb is normal implying he is not a CO2 retained so I suspect his COPD is moderate at worst. Stable. No symtpoms of exascerbation. no indication for systemic steroids. -Cont Spiriva -Albutertol PRN [id number] SOB -f/u outpatient Smoking hx - quit. Not candidate for Low dose CT for lung cancer screening given age and quit smoking > 15 years ago JENNIFER on CPAP at home -He should be on auto-pap mode of CPAP while in this hospital -He uses nasal pillows at home if available -need to f/u outpatient to get new machine and equipment as he describes his machine parts are very old Thank you for the consultation. Re-call if questions Luana Nance MD Pulmonary/Critical Care/Sleep Medicine
--- NOTE | 2018-01-16 17:17 | PCM.PYCHPN ---
Psychiatric Progress Note - Psychiatric Progress Note Patient seen today, length of contact: 30min Patient Chief Complaint: "I cannot sleep, I heard explosions, they are doing construction over night, I need to go" Medical Problems: DM HTN alcohol withdrawals Diagnostic Results: 01/14/18 06:03 01/14/18 06:03 Lab Results 01/16/18 01:02: Urine Opiates Screen Negative, Urine Methadone Screen Negative, Ur Barbiturates Screen Negative, Ur Phencyclidine Scrn Negative, Ur Amphetamines Screen Negative, U Benzodiazepines Scrn Negative, U Oth Cocaine Metabols Negative, U Cannabinoids Screen Negative 01/15/18 21:05: POC Glucose (mg/dL) 262 H 01/15/18 16:10: POC Glucose (mg/dL) 148 H 01/15/18 15:39: Urine Color Light yellow, Urine Appearance Clear, Urine pH 8.5, Ur Specific [place] 1.015, Urine Protein Trace H, Urine Glucose (UA) >=1000, Urine Ketones 15 H, Urine Blood Negative, Urine Nitrate Negative, Urine Bilirubin Negative, Urine Urobilinogen 0.2, Ur Leukocyte Esterase Negative, Urine RBC Negative, Urine WBC Negative, Ur Epithelial Cells None, Urine Bacteria Neg 01/15/18 11:34: POC Glucose (mg/dL) 309 H 01/15/18 08:00: RPR Nonreactive 01/15/18 08:00: Triglycerides 119, Cholesterol 255 H, LDL Cholesterol Direct 151 H, HDL Cholesterol 69 H 01/15/18 08:00: Free T4 0.76 L, TSH 3rd Generation 0.81 01/15/18 07:49: POC Glucose (mg/dL) 275 H 01/14/18 20:49: POC Glucose (mg/dL) 293 H 01/14/18 06:03: WBC 6.9, RBC 4.49, Hgb 15.3, Hct 42.7, MCV 95.1, MCH 34.1, MCHC 35.8, RDW 14.8 H, Plt Count 169, MPV 10.3 01/14/18 06:03: Alcohol, Quantitative 499 H* 01/14/18 06:03: Sodium 146, Potassium 3.5 L, Chloride 102, Carbon Dioxide 24, A nion Gap 23 H, BUN 6 L, Creatinine 0.4 L, Est GFR ( Amer) > 60, Est GFR (Non-Af Amer) > 60, Random Glucose 278 H, Calcium 8.6, Total Bilirubin 0.5, AST 49, ALT 46, Alkaline Phosphatase 85, Lactate Dehydrogenase 459, Total Creatine Kinase 124, Troponin I < 0.01, Total Protein 7.9, Albumin 4.4, Globulin 3.4, Albumin/Globulin Ratio 1.3 01/14/18 06:03: PT 11.0, INR 0.96, APTT 29.3 Vital Signs Temp Pulse Pulse Resp BP Pulse Ox 01/16/18 08:28 135/75 01/16/18 07:11 99.1 F 91 H 19 135/75 01/15/18 22:00 88 149/92 H 01/15/18 16:00 84 130/72 01/15/18 12:34 149/75 01/15/18 07:22 97.6 F 104 H 20 149/75 01/14/18 18:24 97.9 F 92 H 18 150/80 96 01/14/18 18:21 92 H 18 01/14/18 17:10 98.4 F 93 H 18 98 01/14/18 17:00 98.4 F 91 H 18 136/79 98 01/14/18 13:30 98.1 F 91 H 20 144/70 97 01/14/18 11:00 98.2 F 97 H 19 100 01/14/18 09:00 98.0 F 95 H 18 144/80 99 01/14/18 07:05 98.4 F 90 18 99 01/14/18 05:30 98.1 F 94 H 18 153/81 H 97 DSM 5 Symptoms Update: shortly patient is 62 year old male, self reported h/o depression, alcohol abuse, denied h/o psychiatric admission, one ? suicidal attempt about two months ago, pt cut his wrist needs to have sutures, pt has multiple stress in his life, marital problems, financial problems, pt also has mulitple medical issues including hypertension, high cholesterol, diabetes, TIA and COPD on CPAP, brought himself to the emergency room for evaluation and stabilization of depressive symptoms, inability to function, depression, hopelessness, suicidal ideation with the plan to overdose on meds. pt does not have outpatient psychiatrist, does not take any psychotropic medications, pt requires further evaluation, observation, meds initiation and titration. pt was seen at the treatment team meeting room. pt wants to be discharged [facility] because "I did not sleep last night, they did construction all night long, I heard noises and explosions" (no construction in the unit, especially no explosions), pt was educated about the alcohol withdrawals, risk/benefits and alternatives of the treatment, pt was not able to comprehend. pt c/o inner "tremor", pt was paranoid that no right medications were given to him, pt was educated and shown med list from the [facility], all meds were confirmed by pt's pharmacy. pt is guarded/irritable/intrusive/paranoid. pt was convinced that one of the student was in his room last night and "you know that you hear the same noises", no one was in his room, nobody was hearing any noises, pt is obviously confused, was not able to draw a clock, was not able to understand the task to draw a clock. pt was educated about 48hr notice, pt refused to sign it. as per staff pt was restless, not sleeping. wellbutrin will be on hold, could give hallucinations. now seroquel hs will be given. Impression: r/o MDD alcohol use disorder alcohol withdrawals r/o delirium vitals are stable, no tremor collaterals from family, see notes for more detailed info Medication Change: Yes (wellbutrin d/c, seroquel started) Medical Record Reviewed: Yes Consults ordered or reviewed: medical consult Mental Status Examination - Cognitive Function Orientation: Person, Place, Situation Memory: Impaired Attention: Poor Concentration: Poor Association: Loose Fund of Knowledge: Poor - Mood Mood: Depressed - Affect Affect: Flat - Formal Thought Process Formal Thought Process: No Impairment - Suicidal Ideation Suicidal Ideation: No - Homicidal Ideation Homicidal Ideation: No Goal/Treatment Plan - Goal/Treatment Plan Need for Continued Stay: Remain at risks for inpatient hospitalization, Severe depression anxiety, Discharge may exacerbated symptoms, Severe functional impairment Progress Toward Problem(s) and Goals/Treatment Plan: Milieu/structure/supportive therapy Medical consult was called to r/o delirium consultation for discharge plan and social issues Med management ativan scheduled for alcohol withdrawals with the plan to taper it off MVI, thiamine, folic acid wellbutrin d/c seroquel hs PRN meds discussed naltrexone Family involvement Follow up on labs Will monitor closely Pt was educated about risk/benefits and alternatives of medications, coping strategies (safety plan, suicide prevention), relapse prevention, importance of follow up with psychiatrist and therapist, stay away from drugs/alcohol/smoking Estimated Date of D/C: 01/25/18
[2018-01-17 06:57] VITALS: RESP 20
[2018-01-17] MEDS: Insulin Lispro (humaLOG) MEDIUM Coverage SC SCH ×4 (08:00→21:41)
[2018-01-17] MEDS: Multivitamin Therapeutic Tab PO SCH (08:38)
[2018-01-17] MEDS: Insulin Lispro (humaLOG) MIX 75/25(10 ml) SC SCH ×3 (10:26→17:35)
[2018-01-17] MEDS ORDERED: Insulin Lispro (humaLOG) MIX 75/25(10 ml) SC STA (12:06)
[2018-01-17] MEDS ORDERED: Bacitracin 500 Units/gm Oint Foilpak UD ONE (15:43)
--- NOTE | 2018-01-17 16:24 | PCM.PYCHPN ---
Psychiatric Progress Note - Psychiatric Progress Note Patient seen today, length of contact: 30min Patient Chief Complaint: "I was trying to open the door, they said that I cannot do that" Problems Identified/Issues Discussed: Suicide/ homicide prevention, past psychiatric h/o, current psychiatric symptoms, medical problems, risk/benefits and alternatives of medications, medications compliance, coping strategies, substance abuse h/o, relapse prevention, importance of follow up with psychiatrist and therapist, discharge plan. Medical Problems: DM HTN alcohol withdrawals Diagnostic Results: 01/14/18 06:03 01/14/18 06:03 Lab Results 01/16/18 01:02: Urine Opiates Screen Negative, Urine Methadone Screen Negative, Ur Barbiturates Screen Negative, Ur Phencyclidine Scrn Negative, Ur Amphetamines Screen Negative, U Benzodiazepines Scrn Negative, U Oth Cocaine Metabols Negative, U Cannabinoids Screen Negative 01/15/18 21:05: POC Glucose (mg/dL) 262 H 01/15/18 16:10: POC Glucose (mg/dL) 148 H 01/15/18 15:39: Urine Color Light yellow, Urine Appearance Clear, Urine pH 8.5, Ur Specific [place] 1.015, Urine Protein Trace H, Urine Glucose (UA) >=1000, Urine Ketones 15 H, Urine Blood Negative, Urine Nitrate Negative, Urine Bilirubin Negative, Urine Urobilinogen 0.2, Ur Leukocyte Esterase Negative, Urine RBC Negative, Urine WBC Negative, Ur Epithelial Cells None, Urine Bacteria Neg 01/15/18 11:34: POC Glucose (mg/dL) 309 H 01/15/18 08:00: RPR Nonreactive 01/15/18 08:00: Triglycerides 119, Cholesterol 255 H, LDL Cholesterol Direct 151 H, HDL Cholesterol 69 H 01/15/18 08:00: Free T4 0.76 L, TSH 3rd Generation 0.81 01/15/18 07:49: POC Glucose (mg/dL) 275 H 01/14/18 20:49: POC Glucose (mg/dL) 293 H 01/14/18 06:03: WBC 6.9, RBC 4.49, Hgb 15.3, Hct 42.7, MCV 95.1, MCH 34.1, MCHC 35.8, RDW 14.8 H, Plt Count 169, MPV 10.3 01/14/18 06:03: Alcohol, Quantitative 499 H* 01/14/18 06:03: Sodium 146, Potassium 3.5 L, Chloride 102, Carbon Dioxide 24, Anion Gap 23 H, BUN 6 L, Creatinine 0.4 L, Est GFR ( Amer) > 60, Est GFR (Non-Af Amer) > 60, Random Glucose 278 H, Calcium 8.6, Total Bilirubin 0.5, AST 49, ALT 46, Alkaline Phosphatase 85, Lactate Dehydrogenase 459, Total Creatine Kinase 124, Troponin I < 0.01, Total Protein 7.9, Albumin 4.4, Globulin 3.4, Albumin/Globulin Ratio 1.3 01/14/18 06:03: PT 11.0, INR 0.96, APTT 29.3 Vital Signs Temp Pulse Pulse Resp BP Pulse Ox 01/16/18 08:28 135/75 01/16/18 07:11 99.1 F 91 H 19 135/75 01/15/18 22:00 88 149/92 H 01/15/18 16:00 84 130/72 01/15/18 12:34 149/75 01/15/18 07:22 97.6 F 104 H 20 149/75 01/14/18 18:24 97.9 F 92 H 18 150/80 96 01/14/18 18:21 92 H 18 01/14/18 17:10 98.4 F 93 H 18 98 01/14/18 17:00 98.4 F 91 H 18 136/79 98 01/14/18 13:30 98.1 F 91 H 20 144/70 97 01/14/18 11:00 98.2 F 97 H 19 100 01/14/18 09:00 98.0 F 95 H 18 144/80 99 01/14/18 07:05 98.4 F 90 18 99 01/14/18 05:30 98.1 F 94 H 18 153/81 H 97 Temp Pulse Resp BP Pulse Ox 98.6 F 113 H 20 121/79 96 01/17/18 06:55 01/17/18 15:34 01/17/18 06:55 01/17/18 15:34 01/14/18 18:24 DSM 5 Symptoms Update: shortly patient is 62 year old male, self reported h/o depression, alcohol abuse, denied h/o psychiatric admission, one ? suicidal attempt about two months ago, pt cut his wrist needs to have sutures, pt has multiple stress in his life, marital problems, financial problems, pt also has mulitple medical issues including hypertension, high cholesterol, diabetes, TIA and COPD on CPAP, brought himself to the emergency room for evaluation and stabilization of depressive symptoms, inability to function, depression, hopelessness, suicidal ideation with the plan to overdose on meds. pt does not have outpatient psychiatrist, does not take any psychotropic medications, pt requires further evaluation, observation, meds initiation and titration. pt was seen at the [facility], patient presented to be less confused, still convinced that some construction work to place overnight, this field underwriter educated patient about delirium, psychosis, patient was not receptive. Patient reported that he slept well last night when this field underwriter asked about construction work patient felt offended and said "it is not me who is making up that stories", off note when patient showed where construction work took place it is a wall to then next patient is room, there is no construction took place overnight, also on the ceiling this is the last floor on the building, no construction took place overnight time. pt was trying to elope. at am pt was insisted to be d/c, this field underwriter educated about the process, pt signed 48hr notice today. will monitor closely. pt slept better. Patient still tachycardia, will increase dose of benzodiazepines, we'll discontinue Ativan by mouth, will start Librium 50 mg 3 times a day Impression: r/o MDD alcohol use disorder alcohol withdrawals r/o delirium vitals are stable, no tremor collaterals from family, see notes for more detailed info Medication Change: Yes (Librium increased, Seroquel increased) Medical Record Reviewed: Yes Mental Status Examination - Cognitive Function Orientation: Person, Place, Situation Memory: Impaired Attention: Poor Concentration: Poor Association: Loose Fund of Knowledge: Poor - Mood Mood: Depressed - Affect Affect: Flat - Formal Thought Process Formal Thought Process: No Impairment - Suicidal Ideation Suicidal Ideation: No - Homicidal Ideation Homicidal Ideation: No Goal/Treatment Plan - Goal/Treatment Plan Need for Continued Stay: Remain at risks for inpatient hospitalization, Severe depression anxiety, Discharge may exacerbated symptoms, Severe functional impairment Progress Toward Problem(s) and Goals/Treatment Plan: Milieu/structure/supportive therapy Medical consult was called to r/o delirium consultation for discharge plan and social issues Med management MVI, thiamine, folic acid wellbutrin d/c celexa 10 mg daily for depression seroquel 50 mg at the nighttime scheduled Librium 50 mg 3 times a day PRN meds discussed naltrexone Family involvement Follow up on labs Will monitor closely Pt was educated about risk/benefits and alternatives of medications, coping strategies (safety plan, suicide prevention), relapse prevention, importance of follow up with psychiatrist and therapist, stay away from drugs/alcohol/smoking Estimated Date of D/C: 01/25/18
--- NOTE | 2018-01-17 19:37 | PN ---
DATE: 01/17/2018 SUBJECTIVE: The patient is in the Behavioral Care Unit at [facility] in [place] in room 519, bed 2. Patient was admitted with schizophrenia, agitation, diabetes, and hypertension. Patient has history of chronic lung disease. Patient also has history of TIA. Patient has uncontrolled diabetes with insulin dependence. PHYSICAL EXAMINATION: VITAL SIGNS: This morning, patient's pulse is 100, blood pressure 127/85, respirations are 20, patient's temperature 98.6. HEENT: Patient's head is normocephalic. NECK: The thyroid is not enlarged. No lymphadenopathy. LUNGS: Trachea central. Breath sounds are vesicular. No adventitious sounds bilaterally. HEART: Normal sinus rhythm. S1, S2 present. ABDOMEN: Soft. Liver and spleen not palpable. SOCCER COACH: No focal deficits are noted. Patient has past history of TIA and also coronary artery disease, has had cardiac type seizures 4 years ago. Today in the morning, the patient's blood sugar was elevated and in the noon, the patient's blood sugar was elevated. The insulin dose adjustment had to be made. LABORATORY DATA: Patient's lab work, we will repeat the lab work since the initial test results . We will do a followup study tomorrow. The current blood sugar was 374 and patient's insulin was increased. Patient's liver enzymes and cardiac enzymes were within normal range. MEDICATIONS: Patient's medications at this point, patient is on ramipril 20 mg daily. Patient is on Ativan for agitation. Patient is on Celexa 10 mg daily. Patient is on Geodon 20 mg every 6 hours p.r.n. Patient is on metformin 1000 mg b.i.d. Insulin coverage, lispro, the patient get 35 units with each meal. Patient is on Lipitor 40 mg daily, gabapentin 300 mg three times a day. Patient also has regular insulin coverage four times a day before meals and at bedtime. We will repeat blood wok tomorrow and will continue care for the patient and awaiting treatment with behavioral care medications. His diet has to be adjusted to a diabetic diet with moderate 2000 calories. Nuno Carcamo MD [facility] # [id number]
[2018-01-18 07:06] VITALS: BP 131/92; PULSE 91
[2018-01-18] MEDS: Insulin Lispro (humaLOG) MIX 75/25(10 ml) SC SCH ×2 (08:33→12:00)
[2018-01-18] MEDS: Insulin Lispro (humaLOG) MEDIUM Coverage SC SCH ×2 (08:34→12:00)
[2018-01-18] MEDS: Multivitamin Therapeutic Tab PO SCH (08:56)
[2018-01-18] MEDS ORDERED: Bacitracin 500 Units/gm Oint Foilpak UD ONE (10:06)
[2018-01-18 13:22] VITALS: TEMP 97.2; O2SAT 99
--- NOTE | 2018-01-18 15:18 | PN ---
DATE: 01/18/2018 SUBJECTIVE: Patient is in the [facility]. He was admitted with agitation, psychotic behavior, unstable, diabetes mellitus. Patient has past history of chronic lung disease. He is a smoker. Patient has also history of alcoholism. Patient has history of appendectomy. He also has history of having had a renal stone extracted from the right kidney by Dr. Ventura Meadows in the past. Patient had minimal invasive surgery for that. Patient also had history of cerebrovascular insufficiency, TIA, history of hypertension, diabetes mellitus as mentioned. Patient has history of having been treated with Repatha for hyperlipidemia. PHYSICAL EXAMINATION: VITAL SIGNS: This morning, pulse is 91, blood pressure 130/92, respirations are 20. GENERAL: Patient is ambulating, is comfortable, much improved clinically. His personality has changed. HEENT: Examination of the head, he is normocephalic. Examination of face shows evidence of erythematous rash on his face, reason for which rash alone is not established here. Patient will follow up with his phlebotomy specialist when he is discharged. NECK: Thyroid not enlarged. Carotid pulses are present. JVP is flat. LUNGS: Trachea central. Breath sounds vesicular. No adventitious sounds. HEART: Normal sinus rhythm. S1, S2 present. ABDOMEN: Soft. Liver and spleen not palpable. LAW TUTOR: No focal deficits. MEDICATIONS AT THIS TIME: Patient is on ramipril, which is Altace 20 mg daily. Patient is on Ativan, aspirin, folic acid, Geodon. Patient is on metformin, insulin and Librium, Lipitor, gabapentin, amlodipine. Patient's home medications consist of amlodipine 10 mg daily. Patient is on vitamin B complex daily. Patient is on Spiriva 18 mcg daily, thiamine 100 mg daily, ramipril 20 mg daily, lorazepam which is Ativan 1 mg daily b.i.d. Patient is on Levemir insulin 45 units subcutaneous before meals and before dinner. Patient gets gabapentin 300 mg 3 times day. Patient was on aspirin 81 mg daily. He says that he was on Rebata that was given to him as an injection every 2 weeks. Patient also notes that he has had circumcision and vasectomy by Dr. Meadows in the past. In his hospital stay, patient has received Tdap injection. This was done as an outpatient. Patient's overall condition has improved. Medically, patient needs close followup. We will okay all his home medicines and patient says he has all the medicines at home and will continue those medications including the insulin and I have not given patient any prescription at this time because he has vouched for the fact that he has all the medications. His psychiatric medicines should be given by Dr. Nixon, she is the physician in charge of taking care of behavioral syndrome. Nuno Carcamo MD
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
== END 2018-01-18 15:43 | disposition home or self-care (01) | DRG 881 ==
LOC: ED 05:12 → ERH 15:47 → PSYC 17:21
PROVIDERS: ADMIT Psychiatry & Neurology Psychiatry; ATTEND Psychiatry & Neurology Psychiatry
PROC: GZ3ZZZZ Medication Management (ICD-10-PCS; principal; 2018-01-14)
PROC: HZ2ZZZZ Detoxification Services for Substance Abuse Treatment (ICD-10-PCS; 2018-01-17)
DX: F32.9 Major depressive disorder, single episode, unspecified (principal); R45.851 Suicidal ideations; F10.239 Alcohol dependence with withdrawal, unspecified; Y90.8 Blood alcohol level of 240 mg/100 ml or more; E11.9 Type 2 diabetes mellitus without complications; E78.00 Pure hypercholesterolemia, unspecified; I10 Essential (primary) hypertension; J44.9 Chronic obstructive pulmonary disease, unspecified; I25.10 Atherosclerotic heart disease of native coronary artery without angina pectoris; Z63.0 Problems in relationship with spouse or partner; Z59.9 Problem related to housing and economic circumstances, unspecified; Z91.5 Personal history of self-harm; Z86.73 Personal history of transient ischemic attack (TIA), and cerebral infarction without residual deficits; Z90.5 Acquired absence of kidney; Z87.891 Personal history of nicotine dependence